=== PATIENT | female | born 1965 | race Caucasian/White ===

== ENCOUNTER 2023-05-23 14:57 | Inpatient (IN) ==
--- NOTE | 2023-05-23 15:15 | ED Triage Note ---
Date of Service May 23, 2023 Provider in Triage Author: Hugh Santiago History of Present Illness This patient was briefly evaluated while in triage. An abbreviated physical exam was performed. This patient is a 57-year-old Female who presents to the ED for evaluation of ED 05/20 for illness returns with continued weakness, fatigue, x over 1 week Physical Exam GENERAL: NAD CARDIOVASCULAR: RRR RESPIRATORY: CTA ABDOMEN: BS x 4. Nontender to palpation. Initial orders for labs and / or imaging were placed and patient was placed in the waiting area until a bed is available. Please see further documentation for the full ED course.
[2023-05-23] MEDS ORDERED: SODIUM CHLORIDE 0.9% 1,000 ML IV ONE (16:24)
--- NOTE | 2023-05-23 16:40 | Emergency Department Note ---
History of Present Illness General Chief complaint: Illness Stated complaint: SICK AND LETHARGIC Time Seen by Provider: 05/23/23 16:21 History of Present Illness Provider complaint: Weakness 57-year-old female presents emergency department for weakness. Patient states her symptoms began over the last 2 weeks. She states she feels very weak and tired. She states she has no energy to even walk around the house. She denies any falls or traumas. Patient recently finished chemotherapy and radiation therapy for lung cancer March 2023 and after finishing that started Ozempic. Patient reports that this is her second time to the emergency department this week for similar symptoms. She states last time they gave her multiple bags of fluids and she felt better and was released but states she feels worse again and had to come back. Home Medications Medication Instructions Recorded Confirmed Type alprazolam 0.5 mg tablet (Xanax) 0.5 mg PO DAILY PRN Anxiety 07/10/19 05/23/23 History aspirin 81 mg chewable tablet 81 mg PO DAILY 10/11/22 05/23/23 History cyclobenzaprine 10 mg tablet 10 mg PO HS PRN Muscle Spasm 10/11/22 05/23/23 History escitalopram oxalate 10 mg tablet 10 mg PO QAM 10/11/22 05/23/23 History (Lexapro) famotidine 20 mg tablet (Pepcid) 20 mg PO DAILY 10/11/22 05/23/23 History fluticasone 250 mcg-salmeterol 50 1 inh inhalation BID 10/11/22 05/23/23 History mcg/dose blistr powdr for inhalation (Advair Diskus) furosemide 20 mg tablet 20 mg PO DAILY PRN swelling 10/11/22 05/23/23 History magnesium oxide 400 mg (241.3 mg 400 mg PO DAILY 10/11/22 05/23/23 History magnesium) tablet ofloxacin 0.3 % ear drops 5 drp otic (ear) BID PRN as 10/11/22 05/23/23 History directed omeprazole 40 mg capsule,delayed 40 mg PO QAM 10/11/22 05/23/23 History release ondansetron HCl 8 mg tablet 8 mg PO Q8H PRN Nausea And Vomiting 10/11/22 05/23/23 History prochlorperazine maleate 10 mg 10 mg PO Q6H PRN Nausea And 10/11/22 05/23/23 History tablet (Compazine) Vomiting losartan 50 mg tablet 50 mg PO QAM 11/20/22 05/23/23 History rosuvastatin 20 mg tablet 20 mg PO HS 05/23/23 05/23/23 History Allergies Allergy/AdvReac Type Severity Reaction Status Date / Time bupropion Allergy Unknown HIVES Verified 05/23/23 19:42 Past Med/Surg History Medical History COPD (chronic obstructive pulmonary disease) Depression Metastatic primary lung cancer Diagnosis 09/20/22 Osteoarthritis Acid reflux Hearing deficit Anxiety Hyperlipidemia Surgical History S/P tonsillectomy History of surgery Hearing implants bilateral S/P bronchoscopy with biopsy 09/20/22 History of ear surgery MULTIPLE - RT History of tooth extraction History of hysterectomy Ovaries remain History of esophagogastroduodenoscopy (EGD) History of colonoscopy Family History Father Hearing loss Prostate cancer Mother Ovarian cancer Brother Lung cancer Sister No problems noted. Brother Myocardial infarction Brother No problems noted. Brother No problems noted. Son No problems noted. Other No family history of adverse response to anesthesia No family history of bleeding disorder Social History Smoking Status: Never smoker Tobacco Type: Cigarettes Age Started Using Tobacco: 16; Cigarettes Per Day: 1 PPD x 40yrs;; Second Hand Exposure: Yes; Do You Dip or Chew Tobacco: No; Hx Alcohol Use: Yes (Social) Alcohol Intake Frequency: 2-4 x/Month Hx Substance Use: No Preferred Language: Micronesian Communication Ability: Effective Visual Impairment: No Limitations Hearing Ability: Cochlear Implant Machine Gunner Required: No Beliefs That Will Affect Care: None marital status: Current Living Situation: Spouse current occupational status: employed 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 How many Children do You have: 1 Feels Safe at Home: Yes Diet: regular caffeine: Yes (4-5 cups/day) during the past year weight has: decreased > 10 lbs Physical Exam Vital Signs Vital Signs - 24 hr 05/23/23 15:14 05/23/23 15:15 05/23/23 17:35 Temperature 36.3 C L Temperature Source Temporal Artery Scan Pulse Rate 124 H 95 H Pulse Rate [Apical] Pulse Rate from SpO2 Sensor Respiratory Rate 20 Respiratory Effort / Characteristics Non-Labored Spontaneous Respiratory Depth Normal Respiratory Pattern Regular Blood Pressure 80/60 L Blood Pressure [Right Arm] Blood Pressure Mean 66 Blood Pressure Mean [Right Arm] Blood Pressure Position Sitting Pulse Oximetry 98 97 Oxygen Delivery Method Room Air Room Air Sepsis Recent Fever Within 48 Hours No Sepsis New/Unexplained Change in Mental Status No Sepsis Action Taken by Nursing Physician Notified 05/23/23 18:18 05/23/23 18:59 05/23/23 19:01 Temperature 37 C Temperature Source Oral Pulse Rate Pulse Rate [Apical] 92 H 93 H Pulse Rate from SpO2 Sensor Respiratory Rate 18 18 Respiratory Effort / Characteristics Non-Labored Respiratory Depth Normal Respiratory Pattern Blood Pressure Blood Pressure [Right Arm] 115/83 121/85 Blood Pressure Mean Blood Pressure Mean [Right Arm] 93 97 Blood Pressure Position Pulse Oximetry 97 97 97 Oxygen Delivery Method Room Air Room Air Sepsis Recent Fever Within 48 Hours Sepsis New/Unexplained Change in Mental Status Sepsis Action Taken by Nursing 05/23/23 20:00 05/23/23 20:00 05/23/23 20:00 Temperature Temperature Source Pulse Rate 98 H Pulse Rate [Apical] 95 H Pulse Rate from SpO2 Sensor Respiratory Rate 18 19 Respiratory Effort / Characteristics Non-Labored Respiratory Depth Normal Respiratory Pattern Blood Pressure 124/85 Blood Pressure [Right Arm] 124/85 Blood Pressure Mean 107 Blood Pressure Mean [Right Arm] 98 Blood Pressure Position Pulse Oximetry 99 98 Oxygen Delivery Method Room Air Sepsis Recent Fever Within 48 Hours Sepsis New/Unexplained Change in Mental Status Sepsis Action Taken by Nursing 05/23/23 20:30 05/23/23 20:30 05/23/23 21:00 Temperature Temperature Source Pulse Rate 88 Pulse Rate [Apical] Pulse Rate from SpO2 Sensor Respiratory Rate 20 Respiratory Effort / Characteristics Respiratory Depth Respiratory Pattern Blood Pressure 131/87 131/86 Blood Pressure [Right Arm] Blood Pressure Mean 102 94 Blood Pressure Mean [Right Arm] Blood Pressure Position Pulse Oximetry 96 Oxygen Delivery Method Room Air Sepsis Recent Fever Within 48 Hours Sepsis New/Unexplained Change in Mental Status Sepsis Action Taken by Nursing 05/23/23 21:00 05/23/23 21:31 Temperature Temperature Source Pulse Rate 89 92 H Pulse Rate [Apical] Pulse Rate from SpO2 Sensor 89 Respiratory Rate 20 Respiratory Effort / Characteristics Respiratory Depth Respiratory Pattern Blood Pressure Blood Pressure [Right Arm] Blood Pressure Mean Blood Pressure Mean [Right Arm] Blood Pressure Position Pulse Oximetry 95 Oxygen Delivery Method Room Air Sepsis Recent Fever Within 48 Hours Sepsis New/Unexplained Change in Mental Status Sepsis Action Taken by Nursing Physical Exam GENERAL: She is oriented to person, place, and time. She appears well-developed and well-nourished. She does not appear distressed. HENT: Exam performed. -Head: Normocephalic and atraumatic. -Right Ear: External ear normal. No mastoid erythema or tenderness -Left Ear: External ear normal. No mastoid erythema or tenderness. Left- sided cochlear implant present. -Mouth/Throat: The oropharynx is clear and moist. No trismus in the jaw. No dental abscesses or uvula swelling. No oropharyngeal exudate or tonsillar abscesses. EYES: Conjunctivae and EOM are normal. Pupils are equal, round, and reactive to light. Right eye exhibits no discharge. Left eye exhibits no discharge. No scleral icterus. NECK: Normal range of motion. Neck supple. No JVD present. No rigidity. No tracheal deviation and normal range of motion present. CV: Tachycardic rate, regular rhythm, normal heart sounds and intact distal pulses. There is no peripheral edema. Palpable radial pulses bue. PULM/CHEST: Effort normal and breath sounds normal. No respiratory distress. No stridor. She has no wheezes. She has no rales. -Chest Wall: She exhibits no tenderness. ABD: The abdomen is soft. She has no distension. No mass is present. There is no tenderness. There is no rebound, no guarding. MUSC/SKEL: Normal range of motion. There is no peripheral edema, tenderness or deformity. LYMPH: No cervical adenopathy. NEURO: She is alert and oriented to person, place, and time. She has normal strength. No cranial nerve deficit or sensory deficit. SKIN: Skin is warm and dry. She is not diaphoretic. PSYCH: She has a normal mood and affect. Behavior is normal. Judgment and thought content normal. Course Course 162: The patient was evaluated in room B2. A complete history and physical exam was performed Cardiac monitoring: An order was placed for continuous cardiac monitoring. The monitor shows a rate of 100 with sinus rhythm interpreted by me 1915: Vital signs stable status post fluids. Blood pressure and heart rate improved. Labs are within normal limits with the exception of a mild hypomagnesemia of 1.6 magnesium repleted in the emergency department. On reassessment the patient is in no acute distress. No focal neurological deficits. Nonsurgical abdomen. No meningeal signs. Patient states she does not feel well and does not feel comfortable going home. [facility]. Administered Medications Discontinued Medications Sodium Chloride (Nss) 1,000 mls @ 999 mls/hr IV .Q1H1M ONE Stop: 05/23/23 17:24 Last Infusion: 05/23/23 18:38 Dose: Infused Documented By: Admin: 05/23/23 17:34 Dose: 999 mls/hr Documented By: CARMEL Magnesium Sulfate/Dextrose (Magnesium Sulfate / D5w) 1 gm in 100 mls @ 100 mls/hr IV NOW STA Stop: 05/23/23 19:02 Last Infusion: 05/23/23 19:21 Dose: Infused Documented By: Admin: 05/23/23 18:21 Dose: 100 mls/hr Documented By: CARMEL Medical Decision Making Medical Records Attestation: I reviewed the patient's medical records. External medical records reviewed. Patient was in the emergency department 3 days ago for similar complaints. At that time the patient had a CT of the head CTA of the chest and CT of the abdomen pelvis which were unremarkable. Patient's labs were also unremarkable with white blood cell count of 4.93 her electrolytes were essentially within normal limits patient had an anion gap of 17 that was thought to be due to starvation ketoacidosis with her 4+ ketones in the patient not eating properly. Patient's respiratory bio fire was negative. Laboratory Data Attestation: I reviewed the patient's lab results. 05/23/23 17:04 05/23/23 17:04 Lab Results 05/23/23 05/23/23 05/23/23 Range/Units 17:04 17:06 19:10 WBC 4.70 L (4.8-10.8) K/ul RBC 4.16 L (4.20-5.40) M/uL Hgb 12.5 (12.0-16.0) g/dl Hct 36.0 L (37.0-47.0) % MCV 86.5 (80.0-100.0) fL MCH 30.0 (25.0-34.0) pg MCHC 34.7 (32.0-36.0) g/dL RDW Std Deviation 39.9 (36.4-46.3) fL RDW Coeff of Lizbeth 12.7 (11.5-14.5) % Plt Count 283 (130-400) K/uL MPV 9.8 (9.4-12.4) fL Immature Gran % (Auto) 0.4 % Neut % (Auto) 65.9 % Lymph % (Auto) 18.1 % [place] % (Auto) 14.5 % Eos % (Auto) 0.9 % Baso % (Auto) 0.2 % Neut # (Auto) 3.10 (1.40-6.50) K/uL Lymph # (Auto) 0.85 L (1.20-3.40) K/uL [place] # (Auto) 0.68 H (0.11-0.59) K/uL Eos # (Auto) 0.04 (0.00-0.50) K/uL Baso # (Auto) 0.01 (0.00-0.20) K/uL Immature Gran # (Auto) 0.02 (0.01-0.20) K/uL PT 11.6 (9.0-12.0) Seconds INR 1.1 (0.9-1.1) APTT 26 (21-31) Seconds PTT Ratio 0.9 VBG pH 7.41 (7.36-7.41) VBG pCO2 36 L (38-50) mmHg VBG pO2 44 mmHg VBG HCO3 23 mmol/L VBG O2 Saturation 72.0 % VBG Base Excess -1.4 mEq/L Sodium 136 (136-145) mmol/L Potassium 3.5 (3.5-5.1) mmol/L Chloride 100 (98-107) mmol/L Carbon Dioxide 23 (21-32) mmol/L Anion Gap 13 H (3-11) BUN 13 (6-23) mg/dl Creatinine 0.62 (0.6-1.2) mg/dl Est Cr Clr Drug Dosing 99.9 ml/min Est GFR ( Amer) 117.7 ml/min Est GFR (Non-Af Amer) 101.5 ml/min BUN/Creatinine Ratio 21.0 H (10-20) Glucose 88 (70-99(Fasting)) mg/dl Lactate 0.8 (0.4-2.0) mmol/L Calcium 9.6 (8.6-10.3) mg/dl Magnesium 1.6 L (1.7-2.4) mg/dl Total Bilirubin 0.5 (0.2-1.0) mg/dl Direct Bilirubin 0.1 (0-0.2) mg/dl AST 18 (13-39) U/L ALT 13 (7-52) U/L Alkaline Phosphatase 42 (34-104) U/L Ammonia 32.0 (18-72) umol/L Troponin I High Sens 5.4 (0-14) pg/ml Total Protein 7.0 (6.0-8.3) gm/dl Albumin 4.2 (3.4-5.0) gm/dl Procalcitonin < 0.05 (0-0.5) ng/ml Urine Color Yellow Urine Appearance Clear (Clear) Urine pH 6.5 (4.5-7.5) Ur Specific D Lo 1.015 (1.000-1.030) Urine Protein Trace H (Negative) Urine Glucose (UA) Negative (Negative) Urine Ketones 3+ H (Negative) Urine Blood Negative (Negative) Urine Nitrite Negative (Negative) Urine Bilirubin Negative (Negative) Urine Urobilinogen Negative (Negative) Ur Leukocyte Esterase Trace H (Negative) Urine WBC (Auto) 5-10 H (0-5) /hpf Urine RBC (Auto) 0-4 (0-4) /hpf U Hyaline Cast (Auto) 10-30 H (0-5) /lpf U Epithel Cells (Auto) >30 H (0-5) /lpf Urine Bacteria (Auto) Negative (Negative) Ur Renal Epithelial Cell 0-5 (0-5) /lpf Salicylates < 3.0 L (3.0-30) mg/dl Acetaminophen < 3 L (10-30) ug/ml SARS-CoV-2 (PCR) NEGATIVE (Negative) Imaging Data Attestation: I personally reviewed and interpreted this imaging study as follows: My Impression: Chest x-ray negative. Airway clear. No pneumothorax. No consolidation. No cardiomegaly or cephalization.. No free air under the diaphragm. No fractures of the skeletal structures. Radiologist's Impression: Chest X-Ray 05/23/23 16:22 XR chest 1V portable HISTORY: 57 years-old Female Sepsis acute sepsis COMPARISON: 05/20/2023 TECHNIQUE: AP view of the chest FINDINGS: Cardiomediastinal and hilar silhouettes are within normal limits. No pneumothorax, pleural effusion or airspace consolidation. The bones appear grossly intact. Right IJ Ugfvzy-s-Ebnh catheter is unchanged. IMPRESSION: No acute process. ACT 112: Negative or not required by law. The above report was generated using voice recognition software. It may contain grammatical, syntax or spelling errors. Electronically signed by: Elton Blair M.D. 05/23/2023 4:48 PM ECG Data Attestation: I personally reviewed and interpreted this ECG as follows: Rate (beats per minute): 109 Rhythm: + sinus tachycardia ECG Intervals/blocks: + Normal SC and + Normal QT-c ECG ST segments: + Normal ST segments Additional Comments: QRS 74 MDM Narrative 1621: The patient was evaluated in room B2. A complete history and physical exam was performed Cardiac monitoring: An order was placed for continuous cardiac monitoring. The monitor shows a rate of 100 with sinus rhythm interpreted by me 1915: Vital signs stable status post fluids. Blood pressure and heart rate improved. Labs are within normal limits with the exception of a mild hypomagnesemia of 1.6 magnesium repleted in the emergency department. On reassessment the patient is in no acute distress. No focal neurological deficits. Nonsurgical abdomen. No meningeal signs. Patient states she does not feel well and does not feel comfortable going home. Patient will be admitted to the [facility] hospitalist team. Impression & Plan Hypomagnesemia Discharge Plan Visit Data Chief Complaint: Illness Stated Complaint: SICK AND LETHARGIC ED Provider: Nam Banegas Discharge Problem: Hypomagnesemia Patient Disposition: Being Evaluated by Hospitalist Forms Stand Alone Forms: My [employer] Prescriptions Prescriptions: No Action cyclobenzaprine 10 mg tablet 10 mg PO HS PRN (Reason: Muscle Spasm) famotidine [Pepcid] 20 mg tablet 20 mg PO DAILY omeprazole 40 mg capsule,delayed release(DR/EC) 40 mg PO QAM fluticasone propion-salmeterol [Advair Diskus] 250-50 mcg/dose blister with device 1 inh inhalation BID escitalopram oxalate [Lexapro] 10 mg tablet 10 mg PO QAM furosemide 20 mg tablet 20 mg PO DAILY PRN (Reason: swelling) ofloxacin 0.3 % drops 5 drp otic (ear) BID PRN (Reason: as directed) magnesium oxide 400 mg (241.3 mg magnesium) tablet 400 mg PO DAILY ondansetron HCl 8 mg tablet 8 mg PO Q8H PRN (Reason: Nausea And Vomiting) prochlorperazine maleate [Compazine] 10 mg tablet 10 mg PO Q6H PRN (Reason: Nausea And Vomiting) aspirin 81 mg tablet,chewable 81 mg PO DAILY losartan 50 mg tablet 50 mg PO QAM alprazolam [Xanax] 0.5 mg Tablet 0.5 mg PO DAILY PRN (Reason: Anxiety) rosuvastatin 20 mg tablet 20 mg PO Referrals Referrals: Anh Krishnamurthy DO [Primary Care Provider] -
--- NOTE | 2023-05-23 16:50 | XRay Report ---
XR chest 1V portable HISTORY: 57 years-old Female Sepsis acute sepsis COMPARISON: 05/20/2023 TECHNIQUE: AP view of the chest FINDINGS: Cardiomediastinal and hilar silhouettes are within normal limits. No pneumothorax, pleural effusion o r airspace consolidation. The bones appear grossly intact. Right IJ Inleif-d-Uoct catheter is unchang ed. IMPRESSION: No acute process. ACT 112: Negative or not required by law. The above report was generated using voice recognition software. It may contain grammatical, syntax o r spelling errors. Electronically signed by: Elton Blair M.D. 05/23/2023 4:48 PM
[2023-05-23 17:21] LABS: Base Excess VBG -1.4 mEq/L; HCO3 VBG 23 mmol/L; PCO2 VBG 36 mmHg (38-50); PO2 VBG 44 mmHg; pH VBG 7.41 (7.36-7.41)
[2023-05-23 17:27] LABS: Basophils # (auto) 0.01 K/uL (0.00-0.20); Basophils % (auto) 0.2 %; Eosinophils # (auto) 0.04 K/uL (0.00-0.50); Eosinophils % (auto) 0.9 %; Hemoglobin 12.5 g/dl (12.0-16.0); Immature Granulocytes # (auto) 0.02 K/uL (0.01-0.20); Immature Granulocytes % (auto) 0.4 %; Lymphocytes # (auto) 0.85 K/uL (1.20-3.40); Lymphocytes % (auto) 18.1 %; Mean Corpuscular Hgb Conc 34.7 g/dL (32.0-36.0); Mean Corpuscular Volume 86.5 fL (80.0-100.0); Mean Platelet Volume 9.8 fL (9.4-12.4); Monocytes # (auto) 0.68 K/uL (0.11-0.59); Monocytes % (auto) 14.5 %; Neutrophils % (auto) 65.9 %; Platelet Count 283 K/uL (130-400); RDW Coefficient of Variation 12.7 % (11.5-14.5); RDW Standard Deviation 39.9 fL (36.4-46.3); Red Blood Count 4.16 M/uL (4.20-5.40)
[2023-05-23 17:44] LABS: Albumin Level 4.2 gm/dl (3.4-5.0); Bilirubin Direct 0.1 mg/dl (0-0.2); Bilirubin,Total 0.5 mg/dl (0.2-1.0); Calcium 9.6 mg/dl (8.6-10.3); Creatinine Clr Calc Pharmacy 99.9 ml/min; Est GFR (African American) 117.7 ml/min; Est GFR (Non-African American) 101.5 ml/min; Magnesium 1.6 mg/dl (1.7-2.4); Potassium 3.5 mmol/L (3.5-5.1)
[2023-05-23 17:50] LABS: Troponin I High Sensitivity 5.4 pg/ml (0-14)
[2023-05-23 17:58] LABS: INR 1.1 (0.9-1.1); Partial Thromboplastin Ratio 0.9; Partial Thromboplastin Time 26 Seconds (21-31); Prothrombin Time 11.6 Seconds (9.0-12.0)
[2023-05-23 18:02] LABS: Acetaminophen < 3 ug/ml (10-30); Salicylate < 3.0 mg/dl (3.0-30)
[2023-05-23] MEDS ORDERED: MAGNESIUM SULFATE / D5W 1 GM/100 ML BAG IV STA (18:03)
[2023-05-23 19:33] LABS: Appearance Urine Clear (Clear); Bacteria Urine Automated Negative (Negative); Bilirubin Urine Negative (Negative); Blood Urine Negative (Negative); Color Urine Yellow; Epithelial Cell Urine Auto >30 /lpf (0-5); Glucose Urine UA Negative (Negative); Ketones Urine 3+ (Negative); Leukocyte Esterase Urine Trace (Negative); Nitrite Urine Negative (Negative); Protein Urine Trace (Negative); RBC Urine Automated 0-4 /hpf (0-4); Specific Gravity Urine 1.015 (1.000-1.030); Urobilinogen Urine Negative (Negative); pH Urine 6.5 (4.5-7.5)
[2023-05-23 20:03] LABS: Renal Epithelial Cells Urine 0-5 /lpf (0-5)
--- NOTE | 2023-05-23 20:41 | History & Physical Report ---
Date of Service May 23, 2023 Assessment & Plan (1) Weakness: Plan: 57-year-old female with past medical history significant for hyperlipidemia, small cell lung cancer s/p chemoradiation, GERD, benign essential tremor, mixed conductive and sensorineural hearing loss of both ears, genetic leukocyte abnormalities , recurrent depression, generalized anxiety disorder, tobacco use disorder, Psychophysiological insomnia, history of COVID, comes because of weakness, nausea, poor appetite, dyspnea on exertion and ambulatory dysfunction. Patient states she is having this ongoing symptoms for more than a week and was in the ER 3 times last 1 week. On presentation today she was hypotensive improved with the fluids. Her Ozempic was held for the chemo but was restarted and she was taking low-dose. But because of ongoing symptoms she states she stopped Ozempic last Sunday. Having some headache. Has some back pain. No runny nose or sore throat. No cough. No fevers. No chest pain. Today has some mild abdominal discomfort. Did not move her bowels in last 1 week. On presentation her blood pressure was low but improved with the fluids. She is also sleeping a lot lately. But her states since she had prophylactic brain radiation she has been sleeping a lot. She finished her chemoradiation in March 2023. Weakness Poor appetite Nausea Sleeping a lot Ozempic has been stopped since last Sunday last chemoradiation March Labs shows possible starvation ketosis ABGs okay Mag 1.[address] on IV D5 normal saline 125 mill per hour Will monitor Follow repeat labs. Hypotension Possible from dehydration Improved with fluids Hypomagnesemia Will replace Follow labs Small cell lung cancer S/p chemoradiation S/p prophylactic brain radiation Follows with heme-onc Hypertension on losartan We will monitor. Hyperlipidemia On statin Depression Generalized anxiety disorder Lexapro Xanax as needed DVT prophylaxis Lovenox Disposition MedSur full code DVT prophylaxis History of Present Illness Chief Complaint: Weakness, poor appetite Primary Care Provider: Anh Krishnamurthy DO 57-year-old female with past medical history significant for hyperlipidemia, small cell lung cancer s/p chemoradiation, GERD, benign essential tremor, mixed conductive and sensorineural hearing loss of both ears, genetic leukocyte abnormalities , recurrent depression, generalized anxiety disorder, tobacco use disorder, Psychophysiological insomnia, history of COVID, comes because of weakness, nausea, poor appetite, dyspnea on exertion and ambulatory dysfunction. Patient states she is having this ongoing symptoms for more than a week and was in the ER 3 times in last 1 week. On presentation today she was hypotensive improved with the fluids. Her Ozempic was held for the chemo but was restarted and she was taking low-dose. But because of ongoing symptoms she states she stopped Ozempic last Sunday. Having some headache. Has some back pain. No runny nose or sore throat. No cough. No fevers. No chest pain. Today has some mild abdominal discomfort. Did not move her bowels in last 1 week. On presentation her blood pressure was low but improved with the fluids. She is also sleeping a lot lately. But her states since she had prophylactic brain radiation she has been sleeping a lot. She finished her chemoradiation in March 2023. Past medical history. As mentioned above. Past surgical history. Bronchoscopy. Colonoscopy. EGD. Multiple right ear surgeries. Excision of subcutaneous tumor neck/chest. Partial hysterectomy. Social history. . Quit smoking in 10/19/2022. Smoked 1 pack a day for 35 years. Alcohol on the weekends. No drug use. Family history. No known family history. Allergies Allergy/AdvReac Type Severity Reaction Status Date / Time bupropion Allergy Unknown HIVES Verified 05/23/23 19:42 Home Medications Medication Instructions Recorded Confirmed Type alprazolam 0.5 mg tablet (Xanax) 0.5 mg PO DAILY PRN Anxiety 07/10/19 05/23/23 History aspirin 81 mg chewable tablet 81 mg PO DAILY 10/11/22 05/23/23 History cyclobenzaprine 10 mg tablet 10 mg PO HS PRN Muscle Spasm 10/11/22 05/23/23 History escitalopram oxalate 10 mg tablet 10 mg PO QAM 10/11/22 05/23/23 History (Lexapro) famotidine 20 mg tablet (Pepcid) 20 mg PO DAILY 10/11/22 05/23/23 History fluticasone 250 mcg-salmeterol 50 1 inh inhalation BID 10/11/22 05/23/23 History mcg/dose blistr powdr for inhalation (Advair Diskus) furosemide 20 mg tablet 20 mg PO DAILY PRN swelling 10/11/22 05/23/23 History magnesium oxide 400 mg (241.3 mg 400 mg PO DAILY 10/11/22 05/23/23 History magnesium) tablet ofloxacin 0.3 % ear drops 5 drp otic (ear) BID PRN as 10/11/22 05/23/23 History directed omeprazole 40 mg capsule,delayed 40 mg PO QAM 10/11/22 05/23/23 History release ondansetron HCl 8 mg tablet 8 mg PO Q8H PRN Nausea And Vomiting 10/11/22 05/23/23 History prochlorperazine maleate 10 mg 10 mg PO Q6H PRN Nausea And 10/11/22 05/23/23 History tablet (Compazine) Vomiting losartan 50 mg tablet 50 mg PO QAM 11/20/22 05/23/23 History rosuvastatin 20 mg tablet 20 mg PO HS 05/23/23 05/23/23 History Past Med/Surg History Medical History COPD (chronic obstructive pulmonary disease) Depression Metastatic primary lung cancer Diagnosis 09/20/22 Osteoarthritis Acid reflux Hearing deficit Anxiety Hyperlipidemia Surgical History S/P tonsillectomy History of surgery Hearing implants bilateral S/P bronchoscopy with biopsy 09/20/22 History of ear surgery MULTIPLE - RT History of tooth extraction History of hysterectomy Ovaries remain History of esophagogastroduodenoscopy (EGD) History of colonoscopy Family History Father Hearing loss Prostate cancer Mother Ovarian cancer Brother Lung cancer Sister No problems noted. Brother Myocardial infarction Brother No problems noted. Brother No problems noted. Son No problems noted. Other No family history of adverse response to anesthesia No family history of bleeding disorder Social History Smoking Status: Former smoker Tobacco Type: Cigarettes Age Started Using Tobacco: 16; Cigarettes Per Day: 1 PPD x 40yrs;; Second Hand Exposure: Yes; Do You Dip or Chew Tobacco: No; Hx Alcohol Use: Yes Alcohol Intake Frequency: 2-4 x/Month Hx Substance Use: No Preferred Language: Japanese Communication Ability: Effective Visual Impairment: No Limitations Hearing Ability: Cochlear Implant Diplomatic Officer Required: No Beliefs That Will Affect Care: None marital status: Current Living Situation: Spouse current occupational status: employed 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 ENT- oropharynx clear Neck- supple, no JVD. Lungs- clear to auscultation no wheezing or crackles. Heart- regular rhythm; no murmur, no gallop. Abdomen- normal bowel sounds, soft, nontender, no distension. Extremities- no pretibial edema, no erythema seen. Neuro- alert, oriented x 3; PERRL, no facial palsy; no dysarthria; moves extremities. Skin- warm & dry Results & Data Results & Data Vital Signs (Past 12 Hours) Vital Signs Temp Pulse Pulse Resp BP BP Pulse Ox 05/23/23 20:00 95 H 18 124/85 99 05/23/23 19:01 37 C 93 H 18 121/85 97 05/23/23 18:59 97 05/23/23 18:18 92 H 18 115/83 97 05/23/23 17:35 95 H 05/23/23 15:15 97 05/23/23 15:14 36.3 C L 124 H 20 80/60 L 98 O2 Del Method 05/23/23 20:00 Room Air 05/23/23 19:01 Room Air 05/23/23 18:59 Room Air 05/23/23 18:18 05/23/23 17:35 05/23/23 15:15 Room Air 05/23/23 15:14 Room Air Diagnostic Findings Laboratory Results WBC 4.70 K/ul (4.8-10.8) L 05/23/23 17:04 RBC 4.16 M/uL (4.20-5.40) L 05/23/23 17:04 Hgb 12.5 g/dl (12.0-16.0) 05/23/23 17:04 Hct 36.0 % (37.0-47.0) L 05/23/23 17:04 MCV 86.5 fL (80.0-100.0) 05/23/23 17:04 MCH 30.0 pg (25.0-34.0) 05/23/23 17:04 MCHC 34.7 g/dL (32.0-36.0) 05/23/23 17:04 RDW Std Deviation 39.9 fL (36.4-46.3) 05/23/23 17:04 RDW Coeff of Lizbeth 12.7 % (11.5-14.5) 05/23/23 17:04 Plt Count 283 K/uL (130-400) 05/23/23 17:04 MPV 9.8 fL (9.4-12.4) 05/23/23 17:04 Immature Gran % (Auto) 0.4 % 05/23/23 17:04 Neut % (Auto) 65.9 % 05/23/23 17:04 Lymph % (Auto) 18.1 % 05/23/23 17:04 [place] % (Auto) 14.5 % 05/23/23 17:04 Eos % (Auto) 0.9 % 05/23/23 17:04 Baso % (Auto) 0.2 % 05/23/23 17:04 Neut # (Auto) 3.10 K/uL (1.40-6.50) 05/23/23 17:04 Lymph # (Auto) 0.85 K/uL (1.20-3.40) L 05/23/23 17:04 [place] # (Auto) 0.68 K/uL (0.11-0.59) H 05/23/23 17:04 Eos # (Auto) 0.04 K/uL (0.00-0.50) 05/23/23 17:04 Baso # (Auto) 0.01 K/uL (0.00-0.20) 05/23/23 17:04 Immature Gran # (Auto) 0.02 K/uL (0.01-0.20) 05/23/23 17:04 PT 11.6 Seconds (9.0-12.0) 05/23/23 17:04 INR 1.1 (0.9-1.1) 05/23/23 17:04 APTT 26 Seconds (21-31) 05/23/23 17:04 PTT Ratio 0.9 05/23/23 17:04 VBG pH 7.41 (7.36-7.41) 05/23/23 17:04 VBG pCO2 36 mmHg (38-50) L 05/23/23 17:04 VBG pO2 44 mmHg 05/23/23 17:04 VBG HCO3 23 mmol/L 05/23/23 17:04 VBG O2 Saturation 72.0 % 05/23/23 17:04 VBG Base Excess -1.4 mEq/L 05/23/23 17:04 Sodium 136 mmol/L (136-145) 05/23/23 17:04 Potassium 3.5 mmol/L (3.5-5.1) 05/23/23 17:04 Chloride 100 mmol/L (98-107) 05/23/23 17:04 Carbon Dioxide 23 mmol/L (21-32) 05/23/23 17:04 Anion Gap 13 (3-11) H 05/23/23 17:04 BUN 13 mg/dl (6-23) 05/23/23 17:04 Creatinine 0.62 mg/dl (0.6-1.2) 05/23/23 17:04 Est Cr Clr Drug Dosing 99.9 ml/min 05/23/23 17:04 Est GFR ( Amer) 117.7 ml/min 05/23/23 17:04 Est GFR (Non-Af Amer) 101.5 ml/min 05/23/23 17:04 BUN/Creatinine Ratio 21.0 (10-20) H 05/23/23 17:04 Glucose 88 mg/dl (70-99(Fasting)) 05/23/23 17:04 Lactate 0.8 mmol/L (0.4-2.0) 05/23/23 17:04 Calcium 9.6 mg/dl (8.6-10.3) 05/23/23 17:04 Magnesium 1.6 mg/dl (1.7-2.4) L 05/23/23 17:04 Total Bilirubin 0.5 mg/dl (0.2-1.0) 05/23/23 17:04 Direct Bilirubin 0.1 mg/dl (0-0.2) 05/23/23 17:04 AST 18 U/L (13-39) 05/23/23 17:04 ALT 13 U/L (7-52) 05/23/23 17:04 Alkaline Phosphatase 42 U/L (34-104) 05/23/23 17:04 Ammonia 32.0 umol/L (18-72) 05/23/23 17:04 Troponin I High Sens 5.4 pg/ml (0-14) 05/23/23 17:04 Total Protein 7.0 gm/dl (6.0-8.3) 05/23/23 17:04 Albumin 4.2 gm/dl (3.4-5.0) 05/23/23 17:04 Procalcitonin < 0.05 ng/ml (0-0.5) 05/23/23 17:06 Urine Color Yellow 05/23/23 19:10 Urine Appearance Clear (Clear) 05/23/23 19:10 Urine pH 6.5 (4.5-7.5) 05/23/23 19:10 Ur Specific [place] 1.015 (1.000-1.030) 05/23/23 19:10 Urine Protein Trace (Negative) H 05/23/23 19:10 Urine Glucose (UA) Negative (Negative) 05/23/23 19:10 Urine Ketones 3+ (Negative) H 05/23/23 19:10 Urine Blood Negative (Negative) 05/23/23 19:10 Urine Nitrite Negative (Negative) 05/23/23 19:10 Urine Bilirubin Negative (Negative) 05/23/23 19:10 Urine Urobilinogen Negative (Negative) 05/23/23 19:10 Ur Leukocyte Esterase Trace (Negative) H 05/23/23 19:10 Urine WBC (Auto) 5-10 /hpf (0-5) H 05/23/23 19:10 Urine RBC (Auto) 0-4 /hpf (0-4) 05/23/23 19:10 U Hyaline Cast (Auto) 10-30 /lpf (0-5) H 05/23/23 19:10 U Epithel Cells (Auto) >30 /lpf (0-5) H 05/23/23 19:10 Urine Bacteria (Auto) Negative (Negative) 05/23/23 19:10 Ur Renal Epithelial Cell 0-5 /lpf (0-5) 05/23/23 19:10 Salicylates < 3.0 mg/dl (3.0-30) L 05/23/23 17:04 Acetaminophen < 3 ug/ml (10-30) L 05/23/23 17:04 SARS-CoV-2 (PCR) NEGATIVE (Negative) 05/23/23 17:04 Impressions Chest X-Ray 05/23/23 16:22 XR chest 1V portable HISTORY: 57 years-old Female Sepsis acute sepsis COMPARISON: 05/20/2023 TECHNIQUE: AP view of the chest FINDINGS: Cardiomediastinal and hilar silhouettes are within normal limits. No pneumothorax, pleural effusion or airspace consolidation. The bones appear grossly intact. Right IJ [id number] catheter is unchanged. IMPRESSION: No acute process. ACT 112: Negative or not required by law. The above report was generated using voice recognition software. It may contain grammatical, syntax or spelling errors. Electronically signed by: Elton Blair M.D. 05/23/2023 4:48 PM ECG Additional Comments: ECG. Sinus tachycardia with occasional PVCs rate of 109. Possible left atrial enlargement. Left anterior fascicular block. No acute ST changes seen. Code Status & VTE Plan VTE Prophylaxis Plan VTE Prophylaxis will be ordered: Yes
[2023-05-23] MEDS ORDERED: ONDANSETRON INJ 2 MG/ML 2 ML VIAL IV PRN (23:34)
[2023-05-23] MEDS ORDERED: ACETAMINOPHEN 325 MG TAB PO PRN (23:34)
[2023-05-23] MEDS ORDERED: PROCHLORPERAZINE MALEATE 10 MG TAB PO PRN (23:34)
[2023-05-23] MEDS ORDERED: INSULIN ASPART PER UNIT CHARGE SC SCH (23:34)
[2023-05-23] MEDS ORDERED: ALPRAZolam 0.5 MG TABLET PO PRN (23:34)
[2023-05-23] MEDS ORDERED: GLUCOSE 10 TAB/TUBE PO PRN (23:34)
[2023-05-23] MEDS ORDERED: CYCLOBENZAPRINE HCL 10 MG TAB PO PRN (23:34)
[2023-05-23] MEDS ORDERED: GLUCOSE 40% GEL 15 GM TUBE PO PRN (23:34)
[2023-05-23] MEDS ORDERED: DEXTROSE 50% 50 ML SYRINGE IV PRN (23:34)
[2023-05-23] MEDS ORDERED: GLUCAGON FOR INJ 1 MG VIAL SQ PRN (23:34)
[2023-05-23] MEDS ORDERED: CARBOHYDRATES FOR HYPOGLYCEMIA PO PRN (23:34)
[2023-05-23] MEDS ORDERED: FUROSEMIDE 20 MG TAB PO PRN (23:34)
[2023-05-24] MEDS ORDERED: OFLOXACIN 0.3% 75 DROPS/5 ML BTL OT PRN (00:37)
[2023-05-24] MEDS: D5W AND NSS 1,000 ML IV SCH ×3 (00:42→16:17)
[2023-05-24] MEDS: ROSUVASTATIN CALCIUM 20 MG TAB PO SCH ×2 (00:44→20:14)
--- OUTSIDE RECORDS SUMMARY | 2023-05-24 05:29 | External Medical Summary | Summary of Care ---
Author Name Unknown Organization [facility] Address [address] [place] [address] Phone [phone] Care Team Providers Care Cell Biology Scientist Name Role Phone Robina Matias DO Primary Care Provider [phone] Encounter Details Date Type Department Care Team (Late st Contact Info) Description 05/23/2023 [facility] [address] [place] [address] Anh Krishnamurthy DO [address] [facility] [place] [address] Allergies Active Allergy Reactions Criticality Noted Date Comments Bupropion Hives 10/07/2019 Other Reaction(s): HIVES documented as of this encounter (statuses as of 05/23/2023) Medications Medication Sig Dispensed Refills Start Date End Date Status Omeprazole 40 MG Oral Capsule Delayed Release (PriLOSEC) TAKE ONE CAPSULE BY MOUTH IN THE MORNING ONE HOUR BEFORE THE FIRST MEAL OF THE DAY 90 Capsule 2 08/31/2022 Active Ondansetron HCl 8 MG Oral Tablet (Zofran)Indication s:Small cell lung cancer (HCC) Take 1 Tablet by mouth every 8 hours as needed for Nausea. 30 Tablet 2 10/10/2022 Active Lidocaine-Prilocai ne 2.5-2.5 % External Cream (Emla)Indications: Small cell lung cancer (HCC) APPLY TO SKIN OVER MEDIPORT & COVER 1HR PRIOR TO ACCESSING. 30 g 1 10/10/2022 Active traZODone HCl 50 MG Oral Tablet (Desyrel) Take 1 Tablet by mouth at bedtime. 30 Tablet 5 10/25/2022 Active Aspirin 81 MG Oral Tablet Delayed Release Take 1 Tablet by mouth in the morning. 0 Active Magnesium 250 MG Oral Tablet Take 2 Tablets by mouth at bedtime. 0 Active Advair Diskus 250-50 MCG/ACT Inhalation Aerosol Powder Breath Activated (Fluticasone-Salme terol)Indications: Obesity, Class I, BMI 30.0-34.9 (see actual BMI) INHALE ONE PUFF BY MOUTH EVERY MORNING AND ONE PUFF BEFORE BEDTIME 180 Each 3 02/06/2023 Active Famotidine 20 MG Oral Tablet (Pepcid) TAKE ONE TABLET BY MOUTH AT BEDTIME 90 Tablet 3 02/08/2023 Active predniSONE 10 MG Oral Tablet (Deltasone)Indicat ions:Bronchitis, complicated Take 5 tabs for 2 days, 4 tabs for 2 days, 3 tabs for 2 days, 2 tabs for 2 days 1 tab for 2 days 30 Tablet 0 02/13/2023 Active Additional Information Patient not taking.Reported on 03/27/2023 Cyclobenzaprine HCl 10 MG Oral Tablet (Flexeril)Indicati ons:Lumbar back pain,Recurrent major depressive disorder, in partial remission (HCC),AVILA (generalized anxiety disorder) Take 1 Tablet by mouth at bedtime as needed for Muscle spasms. 20 Tablet 0 02/21/2023 Active Escitalopram Oxalate 10 MG Oral Tablet (Lexapro) TAKE ONE TABLET BY MOUTH EVERY DAY IN THE MORNING 90 Tablet 1 03/08/2023 Active Rosuvastatin Calcium 20 MG Oral Tablet (Crestor)Indicatio ns:Dyslipidemia, goal LDL below 130,AVILA (generalized anxiety disorder) TAKE ONE TABLET BY MOUTH AT BEDTIME 90 Tablet 1 03/08/2023 Active Nicotine Polacrilex 2 MG Mouth/Throat Lozenge (Nicotine Mini)Indications:S moker within last 12 months Apply 2 mg to the mouth or throat every 6 hours. 168 Lozenge 1 03/19/2023 Active oxyCODONE-Acetamin ophen 5-325 MG Oral Tablet (Percocet) Take 1 Tablet by mouth every 6 hours as needed for Pain, Moderate. 10 Tablet 0 03/30/2023 Active Nirmatrelvir&Riton avir 300/100 20 x 150 MG & 10 x 100MG Oral Tablet Therapy Pack (Paxlovid)Indicati ons:COVID-19 virus infection Take 2 pink tablets of Nirmatrelvir and 1 white tablet of Ritonavir two times a day by mouth. 30 Tablet 0 04/03/2023 Active Ozempic (0.25 or 0.5 MG/DOSE) 2 MG/1.5ML Solution Pen-injector (Semaglutide(0.25 or 0.5MG/DOS))Indicat ions:BMI 30.0-30.9,adult Inject 0.25 mg under the skin once a week. 1.5 mL 1 04/13/2023 Active Losartan Potassium 50 MG Oral Tablet (Cozaar)Indication s:Small cell lung cancer (HCC) Take 0.5 Tablets by mouth in the morning. 30 Tablet 5 04/20/2023 Active ALPRAZolam 0.5 MG Oral Tablet (xaNAX)Indications :AVILA (generalized anxiety disorder) 1/2 to 1 tablet by mouth daily in the AM as needed for tremors and anxiety 30 Tablet 0 04/26/2023 Active Hospital, Clinic, or Other Facility Administered Medication Ordered Dose Route Frequency Start Date End Date Status Albuterol Sulfate (Proventil) (2.5 MG/3ML) 0.083% inhalation solution 2.5 mgIndications:Small cell lung cancer in adult (HCC) 2.5 mg NEBULIZER PRN 12/18/2022 12/18/2023 Active Albuterol Sulfate (Proventil) (5 MG/ML) 0.5% *conc* inhalation solution 2.5 mgIndications:Small cell lung cancer in adult (HCC) 2.5 mg NEBULIZER PRN 12/18/2022 12/18/2023 Active documented as of this encounter (statuses as of 05/23/2023) Active Problems Problem Noted Date Diagnosed Date Encounter for central line care 02/02/2023 Right ovarian cyst 12/06/2022 Overview: IMPRESSION: Right ovarian thinly septated cyst, which appears grossly unchanged since the PET-CT scan of 09/28/2022. 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 Status post cochlear implant bilateral. Tobacco use disorder 10/07/2019 S/P partial hysterectomy 10/07/2019 Overview: Ovaries remain. Follows with [facility]. Psychophysiological insomnia 10/07/2019 Benign essential tremor 04/10/2019 Dyslipidemia, goal LDL below 130 08/07/2016 documented as of this encounter (statuses as of 05/23/2023) Immunizations Name Administration Dates Next Due COVID-19 mRNA, LNP-s, No Pre serve, 2-Dose Series ([employer]) 03/31/2021,08/07/2020,07/17/2020 Pneumococcal Conjugate Vacc, 13 Valent (Prevnar) 08/04/2019 Pneumococcal Polysaccharide PPV23 (Pneumovax) 03/25/2018 Seasonal Influenza Virus Vac cine, Unspecified Formulation 03/14/2019,03/25/2018,02/27/2017,03/21,04/21/2015 Seasonal Influenza, PF, 6 M & above, IM , (FluLaval or Fluzone) 05/24/2022,06/09/2021,02/19/2020,02/27,03/21/2016,04/21/2015 Seasonal Influenza, Recombin ant, RIV4, PF, (Flublock) 03/14/2019,03/25/2018 TDAP (age 10 and older)(Boostrix) 07/04/2010 documented as of this encounter Social History Tobacco Use Types Packs/Day Years Used Date Smoking Tobacco: Former Cigarettes 1 35 Q uit: 10/19/2022 Smokeless Tobacco: Never Alcohol Use Standard Drinks/Week Comments Yes 0 (1 standard drink = 0.6 oz pur e alcohol) weekends PHQ-2 Answer Date Recorded PHQ Adult Total Score 2 02/13/2023 Hunger Vital Sign Answer Date Recorded Within the past 12 months, y ou worried that your food would run out before you got the money to buy more. Never true 02/14/20 23 Within the past 12 months, t he food you bought just didn't last and you didn't have money to get more. Never true 02/13/2023 Sex and Gender Information Value Date Recorded Sex Assigned at Female 02/13/2023 10:11 AM EDT Gender Identity Female 02/13/2023 10:11 AM EDT Sexual Orientation Straight 02/13/2023 10 :11 AM EDT Job Start Date Occupation Industry Not on file Not on file Not on file documented as of this encounter Plan of Treatment Upcoming Encounters Date Type Department Care Team (Late st Contact Info) Description 05/23/2023 4:15 PM EST Imaging Radiology [facility] 1st Floor, [place] [address] [facility] [place] [address] 06/19/2023 11:30 AM EST Immunization/Injectio n Hematology/Oncology Treatment, [place] [address] [place] [address] Lalitha, Chair 2 Hem Onc Scenery [address] [place] [address] 06/27/2023 11:00 AM EST Office Visit Cardiology, [facility] [address] [place] [address] Radha Stephens CRNP [address] [facility] [place] [place] [address] 08/21/2023 8:40 AM EDT Office Visit Family Practice [place], [place] [address] [place] [address] Anh Krishnamurthy DO [address] [place] [address] 09/18/2023 10:00 AM EDT Laboratory Laboratory [place] Wyatt [address] [place] [phone] Namrata Herron [address] [place] [address] [place] [address] 09/20/2023 11:00 AM EDT Imaging Radiology [facility] 1st [facility], [place] [address] [place] [address] 09/27/2023 10:45 AM EDT Office Visit Hematology/Oncology [facility] [address] [facility] [place] [address] Jv Singh MD [address] [facility] [place] [address] Scheduled Procedures Name Priority Associated Diagnoses Date/Ti me COLONOSCOPY FLEXIBLE PROXIMA L DIAGNOSTIC Recall History of colonic polyps Health Maintenance Due Date Last Done Comments Hepatitis B (1 of 3 - 3-dose series) 1965 Zoster Vaccines (1 of 2) 11/25/1986 DTaP,Tdap,and Td Vaccines (2 - Td or Tdap) 07/04/2020 07/04/2010 COVID-19 Vaccine (4 - 2022- season) 2023 03/31/2021, 08/07/2020, 07/17/2020 Influenza Vaccine (FLU shot) (#1) 2023 05/24/2022, 06/09/2021, 02/19/2020, Additional history exists Pneumococcal Vaccine: Pediatrics (0 to 5 Years) and At-Risk Patients (6 to 64 Years) (3 - PPSV23 or PCV20) 03/25/2023 08/04/2019, 03/25/2018 Mammogram 06/09/2023 06/09/2022, 09/18, 07/15/2019, Additional history exists Depression Screening 02/14/2024 02/13/2023 Diabetes Screening 05/08/2026 05/18/2023, 1 07/09/2022, 02/19/2023, Additional history exists COLONOSCOPY-EVERY 5 YRS AGES 18-100 01/27/2028 01/26/2023, 01/26/2023, 01/30/2018 Lipid Panel 02/20/2028 02/19/2023, 11/19, 11/27/2022, Additional history exists Colonoscopy Discontinued 01/26/2023, 12/2022, 01/30/2018 Colorectal Cancer Screening Discontinued Cologuard Discontinued Fecal Occult Blood Test Discontinued GARDASIL-HPV IMMUNIZATION SERIES Aged Out No longer eligible based on patient's age to complete this topic MENINGOCOCCAL (MENACTRA/MENVEO) Aged Out No longer eligible based on patient's age to complete this topic Sigmoidoscopy Discontinued documented as of this encounter Medical Devices Implanted Type Area Histopathology Technician Device Identifier Shelf Expiration Date Model / Serial / Lot Power Port 8fr Sngl Lumen Plas - [id number] Implanted:Qty: 1 on 11/07/2022 by Juan Antonio Jose, at OR [facility] BARD : PERIPHERAL VASCULAR [id number] 03/20/2024 [id number] / / [id number] documented as of this encounter Procedures Procedure Name Priority Date/Time Associated Diagnosis Comments CHEMISTRY-OUTSIDE Routine 05/18/2023 documented in this encounter Results * CHEMISTRY-OUTSIDE (05/18/2023) Not all results display below - see scan for full detail OUTSIDE LAB (SEE SCANNED REPORT) Comment:SCAN INCL: ED LABS: LACTIC ACID,PROBNP,CMP,LIPASE,CBCD CREATININE-OUTSID E LAB 0.70 0.40 - 1.50 MG/DL OUTSIDE LAB (SEE SCANNED REPORT) EGFR-OUTSIDE LAB >90 OUT SIDE LAB (SEE SCANNED REPORT) POTASSIUM-OUTSIDE LAB 4.0 3.6 - 5.0 OUTSIDE LAB (SEE SCANNED REPORT) GLUCOSE-OUTSIDE LAB 82 65 - 110 MG/DL OUTSIDE LAB (SEE SCANNED REPORT) HOURS FASTING OUTSID E LAB (SEE SCANNED REPORT) TRIGLYCERIDES-OUT SIDE LAB OUTSIDE LAB (SEE SCANNED REPORT) CHOLESTEROL-OUTSI DE LAB OUTSIDE LAB (SEE SCANNED REPORT) HDL-OUTSIDE LAB OUTS [facility] (SEE SCANNED REPORT) CHOL/HDL RATIO-OUTSIDE LAB OUTSIDE LA B (SEE SCANNED REPORT) LDL (CALCULATED)-OUTS [facility] OUTSIDE LAB (SEE SCANNED REPORT) LDL (DIRECT MEASURE)-OUTSIDE LAB OUTSIDE LAB (SEE SCANNED REPORT) HEMOGLOBIN, [id number] LAB OUTSIDE LAB (SEE SCANNED REPORT) PHOSPHORUS-OUTSID E LAB OUTSIDE LAB (SEE SCANNED REPORT) PTH-OUTSIDE LAB OUTS [facility] (SEE SCANNED REPORT) MICROALBUMIN RATIO-OUTSIDE LAB OUTSIDE LA B (SEE SCANNED REPORT) PROTEIN, UA-OUTSIDE LAB OUTSIDE LAB (SEE SCANNED REPORT) HEMOGLOBIN-OUTSID E LAB 13.2 12.0 - 16.0 GM/DL OUTSIDE LAB (SEE SCANNED REPORT) 05/18/2023 History Per Patient LABORATORY OUTSIDE LAB (SEE SCANNED REPORT) documented in this encounter Advance Directives Latest Code Status on File Code Status Date Activated Date Inactivated Comments Full Code 03/30/2023 8:08 AM 03/30/2023 2:17 PM Thi s order reflects the patients wishes and were consensually agreed upon. Question Answer Comments Discussion of Advance Directives occurred with: Patient Code Status History Code Status Date Activated Date Inactivated Comments Full Code 03/30/2023 8:02 AM 03/30/2023 8:08 AM Thi s order reflects the patients wishes and were consensually agreed upon. Question Answer Comments Discussion of Advance Directives occurred with: Patient Care Teams Cell Biology Scientist Relationship Specialty Start Date End Date Robina Matias DO PCP - General Family Medicine 10/07/19 documented as of this encounter
--- OUTSIDE RECORDS SUMMARY | 2023-05-24 05:29 | External Medical Summary | Summary of Care ---
Author Name Unknown Organization [facility] Address [address] [place] [address] Phone [phone] Care Team Providers Care Examiner Rating Clerk Name Role Phone Robina Matias DO Primary Care Provider [phone] Encounter Details Date Type Department Care Team (Late st Contact Info) Description 05/23/2023 [facility] [address] [place] [address] Anh Krishnamurthy DO [address] [facility] [place] [address] Allergies Active Allergy Reactions Criticality Noted Date [...] mRNA, LNP-s, No Pre serve, 2-Dose Series ([employer] 03/31/2021,08/07/2020,07/17/2020 Pneumococcal Conjugate Vacc, 13 Valent (Prevnar) [...] Description 05/23/2023 4:15 PM EST Imaging Radiology [facility] 1st Floor, [place] [address] [place] [address] 06/19/2023 11:30 AM EST Immunization/Injectio n Hematology/Oncology Treatment, [place] [address] [place] [address] Lalitha, Chair 2 Hem Onc Scenery [address] [place] [address] 06/27/2023 11:00 AM EST Office Visit Cardiology, [facility] [address] [place] [address] Radha Stephens CRNP 132 [place] [address] 08/21/2023 8:40 AM EDT Office Visit Family Practice [place], [place] [address] [place] [address] Anh Krishnamurthy DO [address] [place] [address] 09/18/2023 10:00 AM EDT Laboratory Laboratory [address] [place] Wy[place] [address] [place] [address] Namrata Herron [address] [address] [place] [address] 09/20/2023 11:00 AM EDT Imaging Radiology [facility] 1st [facility], [place] [address] [place] [address] 09/27/2023 10:45 AM EDT Office Visit Hematology/Oncology [facility] 200 [facility] [place] [address] Jv Singh MD 200 [facility] [place] [address] Scheduled Procedures Name Priority Associated Diagnoses Date/Ti [...] Depression Screening 02/14/2024 02/13/2023 Diabetes Screening 05/08/2026 05/08/2023, 1 , 02/19/2023, Additional history exists COLONOSCOPY-EVERY 5 YRS [...] this encounter Medical Devices Implanted Type Area Biophysics Professor Device Identifier Shelf Expiration Date Model / Serial / Lot Power Port 8fr Sngl Lumen Plas - [id number] Implanted:Qty: 1 on 11/07/2022 by Juan Antonio Jose DO at OR [facility] BARD : PERIPHERAL VASCULAR [id number] 03/20/2024 [id number] / / [id number] documented as of this encounter Procedures Procedure Name Priority Date/Time Associated Diagnosis Comments OUTSIDE LAB-CORONAVIRUS (COVID-19) Routine 05/18/2023 documented in this encounter Results * OUTSIDE LAB-CORONAVIRUS (COVID-19) (05/18/2023) [id number] E LAB NOT DETECTED OUTSIDE LAB (SEE SCANNED REPORT) 05/18/2023 History [...] Advance Directives occurred with: Patient Care Teams Examiner Rating Clerk Relationship Specialty Start Date End Date Robina Matias DO PCP - General Family Medicine 10/07/19 documented as of this encounter
--- OUTSIDE RECORDS SUMMARY | 2023-05-24 05:29 | External Medical Summary | Summary of Care ---
Author Name Unknown Organization [facility] Address [address] [place] [address] Phone [phone] Care Team Providers Care Chainstitch Seat Joiner Name Role Phone Robina Matias DO Primary Care Provider [phone] Reason for Visit * Reason Onset Date Comments Appointment 02/19/2023 Encounter Details Date Type Department Care Team (Late st Contact Info) Description 02/19/[facility] [address] [facility] [place] [id number] Robina Matias DO [address] [place] [address] Appointment Allergies Active Allergy Reactions Criticality Noted Date Comments Bupropion Hives 10/07/2019 Other Reaction(s): HIVES documented as of this encounter (statuses as of 05/21/2023) Medications Medication Sig Dispensed Refills Start Date End Date Status Omeprazole 40 MG Oral Capsule Delayed Release (PriLOSEC) TAKE ONE CAPSULE BY MOUTH IN THE MORNING ONE HOUR BEFORE THE FIRST MEAL OF THE DAY 90 Capsule 2 3 Active Ondansetron HCl 8 MG Oral Tablet (Zofran)Indicati ons:Small cell lung cancer (HCC) Take 1 Tablet by mouth every 8 hours as needed for Nausea. 30 Tablet 2 3 Active Lidocaine-Priloc pooja 2.5-2.5 % External Cream (Emla)Indication s:Small cell lung cancer (HCC) APPLY TO SKIN OVER MEDIPORT & COVER 1HR PRIOR TO ACCESSING. 30 g 1 3 Active traZODone HCl 50 MG Oral Tablet (Desyrel) Take 1 Tablet by mouth at bedtime. 30 Tablet 5 3 Active Aspirin 81 MG Oral Tablet Delayed Release Take 1 Tablet by mouth in the morning. 0 Active Magnesium 250 MG Oral Tablet Take 2 Tablets by mouth at bedtime. 0 Active Advair Diskus 250-50 MCG/ACT Inhalation Aerosol Powder Breath Activated (Fluticasone-Oscar meterol)Indicati ons:Obesity, Class I, BMI 30.0-34.9 (see actual BMI) INHALE ONE PUFF BY MOUTH EVERY MORNING AND ONE PUFF BEFORE BEDTIME 180 Each 3 3 Active Famotidine 20 MG Oral Tablet (Pepcid) TAKE ONE TABLET BY MOUTH AT BEDTIME 90 Tablet 3 3 Active predniSONE 10 MG Oral Tablet (Deltasone)Indic ations:Bronchiti s, complicated Take 5 tabs for 2 days, 4 tabs for 2 days, 3 tabs for 2 days, 2 tabs for 2 days 1 tab for 2 days 30 Tablet 0 3 Active Additional Information Patient not taking.Reported on 03/27/2023 Rosuvastatin Calcium 20 MG Oral Tablet (Crestor)Indicat ions:Dyslipidemi a, goal LDL below 130,AVILA (generalized anxiety disorder) Take 1 Tablet by mouth at bedtime. 90 Tablet 1 3 03/08/20 23 Discontinued Escitalopram Oxalate 10 MG Oral Tablet (Lexapro) Take 1 Tablet by mouth in the morning. 30 Tablet 5 3 03/08/20 23 Discontinued Cyclobenzaprine HCl 10 MG Oral Tablet (Flexeril)Indica tions:Lumbar back pain,Recurrent major depressive disorder, in partial remission (HCC),AVILA (generalized anxiety disorder) Take 1 Tablet by mouth at bedtime as needed for Muscle spasms. 20 Tablet 0 3 02/22/20 23 Discontinued(Ref ill) ALPRAZolam 0.5 MG Oral Tablet (xaNAX)Indicatio ns:AVILA (generalized anxiety disorder) 1/2 to 1 tablet by mouth daily in the AM as needed for tremors and anxiety 30 Tablet 0 3 02/22/20 23 Discontinued(Ref ill) Nicotine Polacrilex 2 MG Mouth/Throat Lozenge (Nicotine Mini)Indications :Smoker within last 12 months Apply 2 mg to the mouth or throat every evening. 168 Lozenge 3 3 03/19/20 23 Discontinued(Ref ill) Amoxicillin-Pot Clavulanate 875-125 MG Oral Tablet (Augmentin) Take 1 Tablet by mouth in the morning and 1 Tablet before bedtime. Do all this for 10 days. 20 Tablet 0 3 03/30/20 23 Discontinued Losartan Potassium 50 MG Oral Tablet (Cozaar) Take 0.5 Tablets by mouth in the morning. 30 Tablet 5 3 04/20/20 23 Discontinued(Ref ill) Hospital, Clinic, or Other Facility Administered Medication [...] as of this encounter (statuses as of 05/21/2023) Active Problems Problem Noted Date Diagnosed Date [...] as of this encounter (statuses as of 05/21/2023) Immunizations Name Administration Dates Next Due COVID-19 mRNA, LNP-s, No Pre serve, 2-Dose Series ([employer]) 03/31/2021,08/07/2020,07/17/2020 Pneumococcal Conjugate Vacc, 13 Valent (Prevnar) [...] on file documented as of this encounter Miscellaneous Notes * Telephone Encounter - Kirsten Mello OSA - 02/19/2023 11:[address] Matias: Needs ENT appointment moved up . Starting Radiation on 03/12/23. documented in this encounter Plan of Treatment Upcoming Encounters Date Type Department Care Team (Late st Contact Info) Description 05/23/2023 4:15 PM EST Imaging Radiology [facility] 1st Floor, [place] [address] [facility] [place] [address] 06/19/2023 11:30 AM EST Immunization/Injectio n Hematology/Oncology Treatment, [place] [address] [place] [address] Lalitha, Chair 2 Hem Onc Scenery [address] [facility] [place] [address] 06/27/2023 11:00 AM EST Office Visit Cardiology, [facility] [address] Radha Stephens CRNP [facility] [address] 08/21/2023 8:40 AM EDT Office Visit Family Practice [address], [place] [address] [place] [address] Anh Krishnamurthy DO [address] [place] [address] 09/18/2023 10:00 AM EDT Laboratory Laboratory [address] [place], [place] [address] [place] [phone] [place] [address] 09/20/2023 11:00 AM EDT Imaging Radiology [facility] 1st [facility] [address] [place] [address] 09/27/2023 10:45 AM EDT Office Visit [facility]ematology/[facility] 200 [facility] [place] [address] Jv Singh MD 200 [facility] [place] [address] Scheduled Procedures Name Priority Associated Diagnoses Date/Ti [...] this encounter Medical Devices Implanted Type Area Dental Mold Maker Device Identifier Shelf Expiration Date Model / Serial / Lot Power Port 8fr Sngl Lumen Plas - [id number] Implanted:Qty: 1 on 11/07/2022 by Juan Antonio Jose DO at OR [facility] BARD : PERIPHERAL VASCULAR [id number] 03/20/2024 [id number] / / [id number] documented as of this encounter Advance Directives Latest Code Status [...] Advance Directives occurred with: Patient Care Teams Chainstitch Seat Joiner Relationship Specialty Start Date End Date Robina Matias DO PCP - General Family Medicine 10/07/19 documented as of this encounter
--- OUTSIDE RECORDS SUMMARY | 2023-05-24 05:29 | External Medical Summary | Summary of Care ---
Author Name Unknown Organization [facility] Address [address] [place] [address] Phone [phone] Care Team Providers Care Parts Counter Salesperson Name Role Phone Robina Matias DO Primary Care Provider [phone] Encounter Details Date Type Department Care Team (Late st Contact Info) Description 05/22/2023 [facility] [address] [place] [address] Anh Krishnamurthy DO [address] [facility] [place] [address] Allergies Active Allergy Reactions Criticality Noted Date Comments Bupropion Hives 10/07/2019 Other Reaction(s): HIVES documented as of this encounter (statuses as of 05/22/2023) Medications Medication Sig Dispensed Refills Start Date [...] as of this encounter (statuses as of 05/22/2023) Active Problems Problem Noted Date Diagnosed Date [...] as of this encounter (statuses as of 05/22/2023) Immunizations Name Administration Dates Next Due COVID-19 mRNA, LNP-s, No Pre serve, 2-Dose Series ([employer]) 03/31/2021,08/07/2020,07/17/2020 Pneumococcal Conjugate Vacc, 13 Valent (Prevnar) [...] Description 05/23/2023 4:15 PM EST Imaging Radiology [facility] 1st Floor, [place] [address] [facility] [place] [address] 06/19/2023 11:30 AM EST Immunization/Injectio n Hematology/Oncology Treatment, [place] [address] [place] [address] Lalitha, Chair 2 Hem Onc Sc[facility] [address] [place] [address] 06/27/2023 11:00 AM EST Office Visit Cardiology, [facility] [address] [place] [address] Radha Stephens CRNP 132 [place] [address] 08/21/2023 8:40 AM EDT Office Visit Family Practice [address] [place], [place] [address] [place] [address] Anh Krishnamurthy DO [address] [place] [address] 09/18/2023 10:00 AM EDT Laboratory Laboratory [place] [address] [place] [phone] Namrata Herron [address] [place] [address] [place] [address] 09/20/2023 11:00 AM EDT Imaging Radiology [facility] 1st [facility], [place] [address] [place] [address] 09/27/2023 10:45 AM EDT Office Visit Hematology/Oncology [facility] [address] [facility] [place] [address] Jv Singh MD [address] [facility] [place] [address] Scheduled Procedures Name Priority Associated Diagnoses Date/Ti [...] this encounter Medical Devices Implanted Type Area Online Marketing Manager Device Identifier Shelf Expiration Date Model / Serial / Lot Power Port 8fr Sngl Lumen Plas - [id number] Implanted:Qty: 1 on 11/07/2022 by Juan Antonio Jose DO at OR [facility] BARD : PERIPHERAL VASCULAR [id number] 03/20/2024 [id number] / / [id number] documented as of this encounter Procedures Procedure Name Priority Date/Time Associated Diagnosis Comments OUTSIDE LAB-CORONAVIRUS (COVID-19) Routine 05/20/2023 documented in this encounter Results * OUTSIDE LAB-CORONAVIRUS (COVID-19) (05/20/2023) [id number] DE LAB NOT DETECTED NOT DETECTED OUTSIDE LAB (SEE SCANNED REPORT) 05/20/2023 History Per Patient LABORATORY OUTSIDE LAB (SEE [...] Advance Directives occurred with: Patient Care Teams Parts Counter Salesperson Relationship Specialty Start Date End Date Robina Matias DO PCP - General Family Medicine 10/07/19 documented as of this encounter
--- OUTSIDE RECORDS SUMMARY | 2023-05-24 05:29 | External Medical Summary | Summary of Care ---
Author Name Unknown Organization [facility] Address [address] [facility] [place] [address] Phone [phone] Care Team Providers Care Sample Mounter Name Role Phone Robina Matias DO Primary Care Provider [phone] Encounter Details Date Type Department Care Team (Late st Contact Info) Description 05/18/2023 Result Scan Unspecified Department <No scans attached> Allergies Active Allergy Reactions Criticality Noted Date [...] Nicotine Polacrilex 2 MG Mouth/Throat Lozenge (Nicotine Mini)Indications:Nidia willett within last 12 months Apply 2 mg [...] hysterectomy 10/07/2019 Overview: Ovaries remain. Follows with [facility] Hector. Psychophysiological insomnia 10/07/2019 Benign essential tremor 04/10/2019 Dyslipidemia, goal LDL below 130 08/07/2016 documented as of this encounter (statuses as of 05/23/2023) Immunizations Name Administration Dates Next Due COVID-19 mRNA, LNP-s, No Pre serve, 2-Dose Series ([employer]) 03/31/2021,08/07/2020,07/17/2020 Pneumococcal Conjugate Vacc, 13 Valent (Prevnar) [...] Description 05/23/2023 4:15 PM EST Imaging Radiology [address] [facility] [address] 06/19/2023 11:30 AM EST Immunization/Injectio n Hematology/Oncology Treatment, [place] [address] [place] [address] Lalitha, Chair 2 Hem Onc Scenery [address] [place] [address] 06/27/2023 11:00 AM EST Office Visit Cardiology, [facility] 132 [facility] [place] [address] Radha Stephens CRNP [address] [facility] [address] 08/21/2023 8:40 AM EDT Office Visit Family Practice [address], [place] [address] [place] [address] Anh Krishnamurthy DO [address] [place] [address] 09/18/2023 10:00 AM EDT Laboratory Laboratory [place] [address] [place] [id number] Namrata Herron [place] [address] [place] [address] 09/20/2023 11:00 AM EDT Imaging Radiology [address] 132 [facility] [place] [address] 09/27/2023 10:45 AM EDT Office Visit Hematology/Oncology [employer] 200 [facility] [place] [address] Jv Singh MD 200 [facility] [place] [address] Scheduled Procedures Name Priority Associated Diagnoses Date/Ti me COLONOSCOPY FLEXIBLE PROXIMA L DIAGNOSTIC Recall History of colonic polyps Health Maintenance Due Date Last Done Comments Hepatitis B (1 of 3 - 3-dose series) 1965 Zoster Vaccines (1 of 2) 11/25/1986 DTaP,Tdap,and Td Vaccines (2 - Td or Tdap) 07/04/2020 07/04/2010 COVID-19 Vaccine ( - 2022- season) 2023 03/31/2021, 08/07/2020, 07/17/2020 [...] this encounter Medical Devices Implanted Type Area Income Tax Adjuster Device Identifier Shelf Expiration Date Model / Serial / Lot Power Port 8fr Sngl Lumen Plas - [id number] Implanted:Qty: 1 on 11/07/2022 by Juan Antonio Jose DO at OR [facility] BARD : PERIPHERAL VASCULAR [id number] 03/20/2024 [id number] / / [id number] documented as of this encounter Procedures Procedure Name Priority Date/Time Associated Diagnosis Comments OUTSIDE LAB RESULTS 05/18/2023 documented in this encounter Results * OUTSIDE LAB RESULTS (05/18/2023) 05/18/2023 No Physician Data Unknown LABORATORY documented in this encounter Advance Directives Latest [...] Advance Directives occurred with: Patient Care Teams Sample Mounter Relationship Specialty Start Date End Date Robina Matias DO PCP - General Family Medicine 10/07/19 documented as of this encounter
[2023-05-24 07:23] LABS: BUN Creatinine Ratio 15.4 (10-20); Calcium 8.6 mg/dl (8.6-10.3); Creatinine Clr Calc Pharmacy 119.1 ml/min; Est GFR (African American) 124.7 ml/min; Est GFR (Non-African American) 107.6 ml/min; Magnesium 1.8 mg/dl (1.7-2.4); Potassium 3.2 mmol/L (3.5-5.1)
[2023-05-24 07:33] LABS: Basophils # (auto) 0.01 K/uL (0.00-0.20); Basophils % (auto) 0.3 %; Eosinophils # (auto) 0.04 K/uL (0.00-0.50); Eosinophils % (auto) 1.3 %; Hematocrit (blood only) 31.4 % (37.0-47.0); Hemoglobin 10.8 g/dl (12.0-16.0); Immature Granulocytes # (auto) 0.02 K/uL (0.01-0.20); Immature Granulocytes % (auto) 0.6 %; Lymphocytes # (auto) 0.68 K/uL (1.20-3.40); Lymphocytes % (auto) 21.9 %; Mean Corpuscular Hemoglobin 30.1 pg (25.0-34.0); Mean Corpuscular Hgb Conc 34.4 g/dL (32.0-36.0); Mean Corpuscular Volume 87.5 fL (80.0-100.0); Mean Platelet Volume 9.9 fL (9.4-12.4); Monocytes # (auto) 0.51 K/uL (0.11-0.59); Monocytes % (auto) 16.5 %; Neutrophils # (auto) 1.84 K/uL (1.40-6.50); Neutrophils % (auto) 59.4 %; Platelet Count 264 K/uL (130-400); RDW Coefficient of Variation 12.7 % (11.5-14.5); RDW Standard Deviation 40.4 fL (36.4-46.3); Red Blood Count 3.59 M/uL (4.20-5.40)
[2023-05-24 07:42] LABS: Estimated Average Glucose 120 mg/dl; Hemoglobin A1C 5.8 % (4.5-5.6)
[2023-05-24] MEDS: MAGNESIUM OXIDE 400 MG TAB PO SCH (08:13)
[2023-05-24] MEDS: PANTOprazole 40 MG TAB PO SCH (08:13)
[2023-05-24] MEDS: ASPIRIN 81 MG ECTAB PO SCH (08:13)
[2023-05-24] MEDS: ESCITALOPRAM OXALATE 10 MG TAB PO SCH (08:13)
[2023-05-24] MEDS: FAMOTIDINE 20 MG TAB PO SCH (08:13)
[2023-05-24] MEDS: ENOXAPARIN INJ 40 MG/0.4 ML SYR SQ SCH (08:13)
[2023-05-24] MEDS: FLUTICASONE/VILANTEROL 100/25MCG 14 PUFFS/INHALER INH SCH (08:18)
[2023-05-24] MEDS ORDERED: POTASSIUM CHLORIDE CRTAB 20 MEQ TABCR PO STA (08:24)
[2023-05-24] MEDS ORDERED: THIAMINE HCL 200 MG in SODIUM CHLORIDE 0.9% 50 ML IV STA (08:29)
[2023-05-24] MEDS ORDERED: LOSARTAN POTASSIUM 50 MG TAB PO SCH (09:00)
[2023-05-24] MEDS: FOLIC ACID 1 MG in SYRINGE 9.8 ML IV SCH (09:42)
[2023-05-24] MEDS: CEROVITE ADV FORMULA TAB PO SCH (09:42)
[2023-05-24] MEDS: oxyCODONE/ACETAMINOPHEN 5mg/325mg TAB PO PRN ×3 (13:00→22:08)
--- NOTE | 2023-05-24 13:50 | Electrocardiogram Report ---
Test Reason : Blood Pressure : / mmHG Vent. Rate : 109 BPM Atrial Rate : 109 BPM P-R Int : 148 ms QRS Dur : 074 ms QT Int : 344 ms P-R-T Axes : 074 -60 074 degrees QTc Int : 463 ms Sinus tachycardia with occasional Premature ventricular complexes Possible Left atrial enlargement Low voltage QRS Left anterior fascicular block Inferior infarct (cited on or before 20-MAY-2023) Cannot rule out Anterior infarct (cited on or before 19-JAN-2014) Abnormal ECG When compared with ECG of 20-MAY-2023 13:29, Premature ventricular complexes are now Present Confirmed by Vince Wagoner ([id number]) on 05/24/2023 1:50:09 PM Referred By: REFERRED SELF Confirmed By:Vince Wagoner
--- NOTE | 2023-05-24 14:00 | Hospitalist Progress Note ---
Date of Service May 24, 2023 Assessment & Plan (1) Weakness: Plan: 57-year-old female with past medical history significant for hyperlipidemia, small cell lung cancer s/p chemoradiation, GERD, benign essential tremor, mixed conductive and sensorineural hearing loss of both ears, genetic leukocyte abnormalities , recurrent depression, generalized anxiety disorder, tobacco use disorder, Psychophysiological insomnia, COVID, comes because of weakness, nausea, poor appetite, dyspnea on exertion and ambulatory dysfunction. 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 On presentation, she was hypotensive improved with the fluids. Her Ozempic was held for the chemo but was restarted and she was taking low-dose. But because of ongoing symptoms she states she stopped Ozempic 1.5 weeks ago DIGITAL SOLUTIONS ARCHITECT. Patient denied febrile illness/flulike illness/chest pain/pain or burning with passing urine/diarrhea. 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 She is being managed for the following: Generalized weakness Poor appetite Nausea Patient has been on low-dose Ozempic, stopped 1.5 weeks ago DIGITAL SOLUTIONS ARCHITECT Last chemoradiation in March. At presentation, patient did not have appetite for 1 week DIGITAL SOLUTIONS ARCHITECT. At presentation, labs show possible starvation ketoacidosis. ABG were okay. Amylase and lipase normal. Monitor replete electrolytes. IV thiamine, IV folic acid, MVI with minerals. c/w IVF until PO intake improves. Dietitian consult, encourage p.o. intake and protein intake. Labs in AM. Follow blood culture. PT/OT. Hypotension: Noted at presentation, improved with fluids. Continue to monitor. Holding home Lasix and losartan. Prediabetes: A1c 5.8, lifestyle modification, follow-up A1c in 3 months. Small cell lung cancer: S/p chemoradiation. S/p prophylactic brain radiation. Follows with heme-onc Hypertension on losartan: We will monitor. Losartan on hold. Hyperlipidemia: On statin, continue Depression, Generalized anxiety disorder: Continue with home Lexapro & Xanax as needed DVT prophylaxis Lovenox Disposition: [facility] full code DVT prophylaxis: Lovenox Admission and Anticipated Discharge Date Admission Date: May 23, 2023 Subjective Patient was seen and examined at bedside. Patient was sitting up in bed, on room air, resting comfortably, not in any acute distress. Patient denies any new acute event overnight. Patient reports having nausea but no vomiting lately. Patient has not been able to eat properly since last 1 week. Denies any flulike illness or chest pain or diarrhea or acute changes in her bowel or bladder habits. Denies fever. Physical Exam Physical Exam: GENERAL: Alert and oriented x3. NAD, on RA. P[place]UNE, appears weak/ill. HEENT: No pallor, no icterus. Pupils equal, round and reactive to light. Oral mucosa moist. NECK: No JVD, no neck masses. HEART: S1 and S2 heard. Regular rate and rhythm. No murmur, no gallop. RESPIRATORY SYSTEM: Normal AP diameter. No accessory muscle use. No wheezing, no crackles. ABDOMEN: Soft, bowel sounds present, nontender, no distention. CENTRAL NERVOUS SYSTEM: No facial droop. Speech is clear. Obeys simple commands. Moves extremities. EXTREMITIES: trace ble edema, no erythema seen. Results & Data Results & Data Vital Signs (Past 12 Hours) Vital Signs Temp Pulse Resp BP Pulse Ox O2 Del Method 05/24/23 08:23 36.5 C 90 16 106/69 96 Room Air
[2023-05-24] MEDS: ALPRAZolam 0.5 MG TABLET PO PRN (20:30)
[2023-05-24] MEDS ORDERED: KETOROLAC TROMETHAMINE 15 MG/ML VIAL IV ONE (22:12)
[2023-05-25] MEDS: D5W AND NSS 1,000 ML IV SCH ×3 (00:04→16:41)
[2023-05-25 06:36] LABS: Hematocrit (blood only) 31.7 % (37.0-47.0); Hemoglobin 10.3 g/dl (12.0-16.0); Mean Corpuscular Hemoglobin 29.8 pg (25.0-34.0); Mean Corpuscular Hgb Conc 32.5 g/dL (32.0-36.0); Mean Corpuscular Volume 91.6 fL (80.0-100.0); Mean Platelet Volume 9.7 fL (9.4-12.4); Platelet Count 255 K/uL (130-400); RDW Coefficient of Variation 12.9 % (11.5-14.5); RDW Standard Deviation 42.6 fL (36.4-46.3); Red Blood Count 3.46 M/uL (4.20-5.40); White Blood Count 2.18 K/ul (4.8-10.8)
[2023-05-25 06:57] LABS: BUN Creatinine Ratio 5.6 (10-20); Calcium 8.3 mg/dl (8.6-10.3); Creatinine Clr Calc Pharmacy 114.7 ml/min; Est GFR (African American) 123.1 ml/min; Est GFR (Non-African American) 106.2 ml/min; Magnesium 1.6 mg/dl (1.7-2.4); Phosphorus 3.9 mg/dl (2.5-4.9); Potassium 3.6 mmol/L (3.5-5.1)
[2023-05-25] MEDS: ASPIRIN 81 MG ECTAB PO SCH (08:17)
[2023-05-25] MEDS: ESCITALOPRAM OXALATE 10 MG TAB PO SCH (08:18)
[2023-05-25] MEDS: FAMOTIDINE 20 MG TAB PO SCH (08:18)
[2023-05-25] MEDS: CEROVITE ADV FORMULA TAB PO SCH (08:19)
[2023-05-25] MEDS: MAGNESIUM OXIDE 400 MG TAB PO SCH (08:19)
[2023-05-25] MEDS: PANTOprazole 40 MG TAB PO SCH (08:19)
[2023-05-25] MEDS: FLUTICASONE/VILANTEROL 100/25MCG 14 PUFFS/INHALER INH SCH (08:20)
[2023-05-25] MEDS: ACETAMINOPHEN 325 MG TAB PO PRN (08:24)
[2023-05-25] MEDS: ALPRAZolam 0.5 MG TABLET PO PRN (08:24)
[2023-05-25] MEDS: FOLIC ACID 1 MG in SYRINGE 9.8 ML IV SCH (08:37)
[2023-05-25] MEDS: THIAMINE HCL 200 MG in SODIUM CHLORIDE 0.9% 50 ML IV SCH (08:40)
[2023-05-25] MEDS: MAGNESIUM SULFATE / D5W 1 GM/100 ML BAG IV SCH ×2 (09:09→10:47)
[2023-05-25] MEDS ORDERED: AMPICILLIN SOD/SULBACTAM SOD 1,500 MG in SODIUM CHLOR 0.9% MINI-B 100 ML IV SCH (09:45)
[2023-05-25] MEDS: ENOXAPARIN INJ 40 MG/0.4 ML SYR SQ SCH (11:35)
[2023-05-25] MEDS ORDERED: Nursing to Pharmacy Communication SCH (12:45)
[2023-05-25] MEDS: UNASYN 3000MG / NS q6h IV SCH ×2 (13:05→19:46)
[2023-05-25] MEDS ORDERED: KETOROLAC TROMETHAMINE 15 MG/ML VIAL IV ONE (14:05)
--- NOTE | 2023-05-25 14:47 | Hospitalist Progress Note ---
Date of Service May 25, 2023 Assessment & Plan (1) Weakness: Plan: Ms. Wilder is a 57-year-old female with past medical history significant for hyperlipidemia, small cell lung cancer s/p chemoradiation, GERD, benign essential tremor, mixed conductive and sensorineural hearing loss of both ears, genetic leukocyte abnormalities , recurrent depression, generalized anxiety disorder, tobacco use disorder, Psychophysiological insomnia, COVID, comes because of weakness, nausea, poor appetite, dyspnea on exertion and ambulatory dysfunction and admitted on 05/23 for evaluation of such. Per prior documentation" Patient states she is having this ongoing symptoms for more than a week FLAMER AFTER LASTING and was in the ER 3 times last 1 week FLAMER AFTER LASTING. On presentation, she was hypotensive improved with the fluids. Her Ozempic was held for the chemo but was restarted and she was taking low-dose. But because of ongoing symptoms she states she stopped Ozempic 1.5 weeks ago FLAMER AFTER LASTING. Patient denied febrile illness/flulike illness/chest pain/pain or burning with passing urine/diarrhea. She had very poor appetite for 1 week FLAMER AFTER LASTING. " She is being managed for the following: #Generalized weakness #Poor appetite #Nausea Patient has been on low-dose Ozempic, stopped 1.5 weeks ago FLAMER AFTER LASTING Last chemoradiation in March. At presentation, patient did not have appetite for 1 week FLAMER AFTER LASTING. At presentation, labs show possible starvation ketoacidosis. ABG were okay. Amylase and lipase normal--Improved Discontinue IVF at this time and encourage PO Given recent ozempic, will trial reglan prior to meals to aid in motility Monitor replete electrolytes, plan for mag/phos in am Dietitian consult, encourage p.o. intake and protein intake. -Transition Boost vanilla to peach and add lactulose intolerance as patient reporting aversion to milk based/creamy products at this time Labs in AM. Infectious work up negative to date PT/OT. #Chronic Bilateral mastoid effusion Noted on CT head from last ED visit. H/o complex ENT history, previously followed with Dr. Curry Discussed case with Dr. Santamaria, information coder ENT, who feels condition is likely chronic due to bilateral appearance on imaging, no erythema or edema around mastoid and no ear drainage Recommends continuing Unasyn (with transition to Augmentin) for a total of 14 days and she will have her office schedule an appt to establish as a new patient upon discharge No additional imaging required at this time Continue Unasyn at this time, EOT 06/08 Hypotension: Noted at presentation, improved with fluids. Continue to monitor. Holding home Lasix and losartan. Prediabetes: A1c 5.8, lifestyle modification, follow-up A1c in 3 months. Small cell lung cancer: S/p chemoradiation. S/p prophylactic brain radiation. Follows with heme-onc Hypertension on losartan: We will monitor. Losartan on hold. Hyperlipidemia: On statin, continue Depression, Generalized anxiety disorder: Continue with home Lexapro & Xanax as needed DVT prophylaxis Lovenox Disposition: [facility] full code DVT prophylaxis: Lovenox Admission and Anticipated Discharge Date Admission Date: May 23, 2023 Supervising Physician Co-Signing Physician Notes Patient was seen and examined at bedside for generalized weakness, poor appetite, nausea, chronic bilateral mastoid effusion. Case was discussed with ENT who recommended Unasyn/Augmentin course for total of 14 days. Patient to follow-up with ENT upon discharge. Patient updated regarding prediabetes and need for lifestyle modification/follow-up A1c in 3 months. Patient advised to follow-up with PCP for long-term management. I have seen and examined the patient and have discussed the case with the provider above. I agree with the assessment and plan as stated. Subjective No acute events overnight. Reports feeling marginally better, but notes more upset/nausea with lactuose types foods and the protein shakes. She denies vomiting, but notes constipation. She states that she takes a few bites of food (like salad) and feels very full, and cannot eat much more without belching. Otherwise, she notes the fatigue is chronic and not sure how much that will improve at this point give the recent radiation. Review of Systems Review of Systems: At least ten systems reviewed and negative except as noted in the HPI. Physical Exam Physical Exam: GENERAL: Alert and oriented x3. NAD, on RA. ill and tired, noted hairloss and generalized pallor HEENT: No pallor, no icterus. Pupils equal, round and reactive to light. Oral mucosa moist. EAC WNL, no drainage. TTP over mastoid bone on R but no erythema or warmth, + bone anchors visualized bilaterally with L hearing aide in place NECK: No JVD, no neck masses HEART: S1 and S2 heard. Regular rate and rhythm. No murmur, no gallop RESPIRATORY SYSTEM: Normal AP diameter. No accessory muscle use. No wheezing, no crackles ABDOMEN: Soft, bowel sounds present, nontender, no distention CENTRAL NERVOUS SYSTEM: No facial droop. Speech is clear. Obeys simple commands. Moves extremities EXTREMITIES: trace ble edema, no erythema seen Results & Data Results & Data Vital Signs (Past 12 Hours) Vital Signs Temp Pulse Resp BP Pulse Ox Pulse Ox O2 Del Method 05/25/23 14:20 36.6 C 80 16 123/84 97 Room Air 05/25/23 10:34 98 05/25/23 07:39 36.4 C L 75 16 117/78 98 Room Air O2 Flow Rate 05/25/23 14:20 05/25/23 10:34 0 05/25/23 07:39 Laboratory Results Short CBC 05/25/23 Range/Units 06:15 WBC 2.18 L (4.8-10.8) K/ul Hgb 10.3 L (12.0-16.0) g/dl Hct 31.7 L (37.0-47.0) % Plt Count 255 (130-400) K/uL BMP 05/25/23 06:15 Sodium 141 Potassium 3.6 Chloride 113 H Carbon Dioxide 24 BUN 3 L Creatinine 0.54 L Glucose 150 H Calcium 8.3 L Diagnostic Findings Chest X-Ray 05/23/23 16:22 XR chest 1V portable HISTORY: 57 years-old Female Sepsis acute sepsis COMPARISON: 05/20/2023 TECHNIQUE: AP view of the chest FINDINGS: Cardiomediastinal and hilar silhouettes are within normal limits. No pneumothorax, pleural effusion or airspace consolidation. The bones appear grossly intact. Right IJ [id number] catheter is unchanged. IMPRESSION: No acute process. ACT 112: Negative or not required by law. The above report was generated using voice recognition software. It may contain grammatical, syntax or spelling errors. Electronically signed by: Elton Blair M.D. 05/23/2023 4:48 PM Medications Administered Home Medications Medication Instructions Recorded Confirmed Last Taken alprazolam 0.5 mg tablet (Xanax) 0.5 mg PO DAILY PRN Anxiety 07/10/19 05/23/23 07/24/19 06:00 aspirin 81 mg chewable tablet 81 mg PO DAILY 10/11/22 05/23/23 Unknown cyclobenzaprine 10 mg tablet 10 mg PO HS PRN Muscle Spasm 10/11/22 05/23/23 Unknown escitalopram oxalate 10 mg tablet 10 mg PO QAM 10/11/22 05/23/23 Unknown (Lexapro) famotidine 20 mg tablet (Pepcid) 20 mg PO DAILY 10/11/22 05/23/23 Unknown fluticasone 250 mcg-salmeterol 50 1 inh inhalation BID 10/11/22 05/23/23 Unknown mcg/dose blistr powdr for inhalation (Advair Diskus) furosemide 20 mg tablet 20 mg PO DAILY PRN swelling 10/11/22 05/23/23 Unknown magnesium oxide 400 mg (241.3 mg 400 mg PO DAILY 10/11/22 05/23/23 Unknown magnesium) tablet ofloxacin 0.3 % ear drops 5 drp otic (ear) BID PRN as 10/11/22 05/23/23 Unknown directed omeprazole 40 mg capsule,delayed 40 mg PO QA 10/11/22 05/23/23 Unknown release ondansetron HCl 8 mg tablet 8 mg PO Q8H PRN Nausea And Vomiting 10/11/22 05/23/23 Unknown prochlorperazine maleate 10 mg 10 mg PO Q6H PRN Nausea And 10/11/22 05/23/23 Unknown tablet (Compazine) Vomiting losartan 50 mg tablet 50 mg PO QAM 11/20/22 05/23/23 Unknown rosuvastatin 20 mg tablet 20 mg PO HS 05/23/23 05/23/23 Unknown Active Medications Generic Name Dose Route Start Last [facility] Reason Stop Dose Admin Acetaminophen 650 mg 05/24/23 12:52 05/26/23 10:13 Acetaminophen 325 Mg Tab PO 06/22/23 23:33 650 mg Q8H PRN Administration pain/fever Alprazolam 0.5 mg 05/24/23 20:25 05/26/23 09:57 Alprazolam 0.5 Mg Tablet PO 06/22/23 23:33 0.5 mg BID PRN Administration Anxiety Aspirin 81 mg 05/24/23 09:00 05/26/23 10:12 Aspirin 81 Mg Ectab PO 06/23/23 08:59 81 mg DAILY ARTHUR Administration Enoxaparin Sodium 40 mg 05/24/23 08:00 05/26/23 11:23 Enoxaparin Inj 40 Mg/0.4 Ml Syr SQ 06/23/23 07:59 40 mg Q24H ARTHUR Administration Escitalopram Oxalate 10 mg 05/24/23 09:00 05/26/23 10:13 Escitalopram Oxalate 10 Mg Tab PO 06/23/23 08:59 10 mg QAM ARTHUR Administration Famotidine 20 mg 05/24/23 09:00 05/26/23 10:13 Famotidine 20 Mg Tab PO 06/23/23 08:59 20 mg DAILY ARTHUR Administration Fluticasone/Vilanterol 1 puffs 05/24/23 09:00 05/26/23 08:39 Fluticasone/Vilanterol 100/25mcg 14 Puffs/Inhaler INH 06/23/23 08:59 1 puffs DAILY ARTHUR Administration Heparin Sodium (Porcine) 5 ml 05/23/23 23:56 05/26/23 12:31 Heparin 100 Unit/Ml 5ml Flush FLUSH 06/22/23 23:55 5 ml PRN PRN Administration Flush Thiamine HCl 200 mg/ Sodium 52 mls @ 210 mls/hr 05/25/23 09:00 05/26/23 10:21 Chloride IV 06/24/23 08:59 Infused QAM ARTHUR Infusion Folic Acid 1 mg/ Syringe 10 mls @ 5 mls/min 05/24/23 09:00 05/26/23 09:58 IV 06/23/23 08:59 5 mls/min QAM ARTHUR Administration Ampicillin Sodium/Sulbactam 100 mls @ 200 mls/hr 05/25/23 10:00 05/26/23 13:13 Sodium 3,000 mg/ Sodium IV 06/04/23 09:59 Infused Chloride Q6H ARTHUR Infusion Losartan Potassium 50 mg 05/24/23 09:00 05/24/23 08:13 Losartan Potassium 50 Mg Tab PO 06/23/23 08:59 50 mg QAM ARTHUR Administration Magnesium Oxide 400 mg 05/24/23 09:00 05/26/23 10:13 Magnesium Oxide 400 Mg Tab PO 06/23/23 08:59 400 mg DAILY ARTHUR Administration Metoclopramide HCl 10 mg 05/26/23 11:30 05/26/23 12:30 Metoclopramide Hcl 10 Mg Tablet PO 06/25/23 11:29 10 mg ACHS ARTHUR Administration Multivitamins/Minerals 1 tab 05/24/23 09:00 05/26/23 10:13 Cerovite Adv Formula Tab PO 06/23/23 08:59 1 tab QAM ARTHUR Administration Oxycodone/Acetaminophen 1 tab 05/24/23 12:51 05/24/23 22:08 Oxycodone/Acetaminophen 5mg/325mg Tab PO 06/07/23 12:50 1 tab Q4H PRN Administration Mild-Mod Pain (Scale 1-6) Pantoprazole Sodium 40 mg 05/24/23 09:00 05/26/23 10:12 Pantoprazole 40 Mg Tab PO 06/23/23 08:59 40 mg QAM ARTHUR Administration Prochlorperazine 10 mg 05/23/23 23:34 05/26/23 09:52 Prochlorperazine Maleate 10 Mg Tab PO 06/22/23 23:33 10 mg Q6H PRN Administration Nausea And Vomiting Rosuvastatin Calcium 20 mg 05/23/23 23:34 05/25/23 20:46 Rosuvastatin Calcium 20 Mg Tab PO 06/22/23 23:33 20 mg HS ARTHUR Administration Senna/Docusate Sodium 1 tab 05/26/23 11:05 05/26/23 12:30 Docusate Sodium/Senna 50/8.6mg Tab PO 06/25/23 11:04 1 tab QAM ARTHUR Administration
[2023-05-25] MEDS: ROSUVASTATIN CALCIUM 20 MG TAB PO SCH (20:46)
[2023-05-26] MEDS: D5W AND NSS 1,000 ML IV SCH ×2 (00:38→11:06)
[2023-05-26] MEDS: UNASYN 3000MG / NS q6h IV SCH ×4 (00:56→19:35)
[2023-05-26 07:25] LABS: Hematocrit (blood only) 32.4 % (37.0-47.0); Hemoglobin 10.7 g/dl (12.0-16.0); Mean Corpuscular Hemoglobin 29.8 pg (25.0-34.0); Mean Corpuscular Volume 90.3 fL (80.0-100.0); Mean Platelet Volume 10.1 fL (9.4-12.4); Platelet Count 290 K/uL (130-400); RDW Coefficient of Variation 12.8 % (11.5-14.5); RDW Standard Deviation 42.5 fL (36.4-46.3); Red Blood Count 3.59 M/uL (4.20-5.40); White Blood Count 3.19 K/ul (4.8-10.8)
[2023-05-26 07:51] LABS: BUN Creatinine Ratio 3.7 (10-20); Calcium 8.6 mg/dl (8.6-10.3); Creatinine Clr Calc Pharmacy 114.7 ml/min; Est GFR (African American) 123.1 ml/min; Est GFR (Non-African American) 106.2 ml/min; Potassium 3.5 mmol/L (3.5-5.1)
[2023-05-26] MEDS: FLUTICASONE/VILANTEROL 100/25MCG 14 PUFFS/INHALER INH SCH (08:39)
[2023-05-26] MEDS: ALPRAZolam 0.5 MG TABLET PO PRN (09:57)
[2023-05-26] MEDS: FOLIC ACID 1 MG in SYRINGE 9.8 ML IV SCH (09:58)
[2023-05-26] MEDS: THIAMINE HCL 200 MG in SODIUM CHLORIDE 0.9% 50 ML IV SCH (09:58)
[2023-05-26] MEDS: PANTOprazole 40 MG TAB PO SCH (10:12)
[2023-05-26] MEDS: ASPIRIN 81 MG ECTAB PO SCH (10:12)
[2023-05-26] MEDS: ESCITALOPRAM OXALATE 10 MG TAB PO SCH (10:13)
[2023-05-26] MEDS: CEROVITE ADV FORMULA TAB PO SCH (10:13)
[2023-05-26] MEDS: FAMOTIDINE 20 MG TAB PO SCH (10:13)
[2023-05-26] MEDS: ACETAMINOPHEN 325 MG TAB PO PRN (10:13)
[2023-05-26] MEDS: MAGNESIUM OXIDE 400 MG TAB PO SCH (10:13)
[2023-05-26] MEDS: ENOXAPARIN INJ 40 MG/0.4 ML SYR SQ SCH (11:23)
[2023-05-26] MEDS: METOCLOPRAMIDE HCL 10 MG TABLET PO SCH ×3 (12:30→19:35)
[2023-05-26] MEDS: DOCUSATE SODIUM/SENNA 50/8.6MG TAB PO SCH (12:30)
[2023-05-26] MEDS: HEPARIN 100 UNIT/ML 5ML FLUSH FLUSH PRN (12:31)
[2023-05-26] MEDS: ROSUVASTATIN CALCIUM 20 MG TAB PO SCH (19:36)
[2023-05-27] MEDS: UNASYN 3000MG / NS q6h IV SCH ×4 (05:56→18:28)
[2023-05-27] MEDS: HEPARIN 100 UNIT/ML 5ML FLUSH FLUSH PRN ×2 (06:41→15:20)
[2023-05-27 07:14] LABS: Hematocrit (blood only) 31.7 % (37.0-47.0); Hemoglobin 10.6 g/dl (12.0-16.0); Mean Corpuscular Hemoglobin 29.9 pg (25.0-34.0); Mean Corpuscular Hgb Conc 33.4 g/dL (32.0-36.0); Mean Corpuscular Volume 89.3 fL (80.0-100.0); Mean Platelet Volume 10.3 fL (9.4-12.4); Platelet Count 303 K/uL (130-400); RDW Coefficient of Variation 12.8 % (11.5-14.5); Red Blood Count 3.55 M/uL (4.20-5.40); White Blood Count 3.65 K/ul (4.8-10.8)
[2023-05-27 07:27] LABS: BUN Creatinine Ratio 5.1 (10-20); Calcium 9.1 mg/dl (8.6-10.3); Est GFR (African American) 119.6 ml/min; Est GFR (Non-African American) 103.2 ml/min; Magnesium 1.6 mg/dl (1.7-2.4); Phosphorus 4.5 mg/dl (2.5-4.9); Potassium 3.7 mmol/L (3.5-5.1)
--- NOTE | 2023-05-27 08:04 | Hospitalist Progress Note ---
Date of Service May 26, 2023 Assessment & Plan (1) Weakness: Plan: Ms. Wilder is a 57-year-old female with past medical history significant for hyperlipidemia, small cell lung cancer s/p chemoradiation, GERD, benign essential tremor, mixed conductive and sensorineural hearing loss of both ears, genetic leukocyte abnormalities , recurrent depression, generalized anxiety disorder, tobacco use disorder, Psychophysiological insomnia, COVID, comes because of weakness, nausea, poor appetite, dyspnea on exertion and ambulatory dysfunction and admitted on 05/23 for evaluation of such. Per prior documentation" Patient states she is having this ongoing symptoms for more than a week DESTATICIZER FEEDER and was in the ER 3 times last 1 week DESTATICIZER FEEDER. On presentation, she was hypotensive improved with the fluids. Her Ozempic was held for the chemo but was restarted and she was taking low-dose. But because of ongoing symptoms she states she stopped Ozempic 1.5 weeks ago DESTATICIZER FEEDER. Patient denied febrile illness/flulike illness/chest pain/pain or burning with passing urine/diarrhea. She had very poor appetite for 1 week DESTATICIZER FEEDER. " She is being managed for the following: #Generalized weakness #Poor appetite #Nausea Patient has been on low-dose Ozempic, stopped 1.5 weeks ago DESTATICIZER FEEDER Last chemoradiation in March. At presentation, patient did not have appetite for 1 week DESTATICIZER FEEDER. At presentation, labs show possible starvation ketoacidosis. ABG were okay. Amylase and lipase normal--Improved Discontinue IVF at this time and encourage PO Given recent ozempic, will trial reglan prior to meals to aid in motility Monitor replete electrolytes, plan for mag/phos in am Dietitian consult, encourage p.o. intake and protein intake. -Transition Boost vanilla to peach and add lactulose intolerance as patient reporting aversion to milk based/creamy products at this time Labs in AM. Infectious work up negative to date PT/OT. #Chronic Bilateral mastoid effusion Noted on CT head from last ED visit. H/o complex ENT history, previously followed with Dr. Curry Discussed case with Dr. Santamaria, construction sales manager ENT, who feels condition is likely chronic due to bilateral appearance on imaging, no erythema or edema around mastoid and no ear drainage Recommends continuing Unasyn (with transition to Augmentin) for a total of 14 days and she will have her office schedule an appt to establish as a new patient upon discharge No additional imaging required at this time Continue Unasyn at this time, EOT 06/08 Hypotension: Noted at presentation, improved with fluids. Continue to monitor. Holding home Lasix and losartan. Prediabetes: A1c 5.8, lifestyle modification, follow-up A1c in 3 months. Small cell lung cancer: S/p chemoradiation. S/p prophylactic brain radiation. Follows with heme-onc Hypertension on losartan: We will monitor. Losartan on hold. Hyperlipidemia: On statin, continue Depression, Generalized anxiety disorder: Continue with home Lexapro & Xanax as needed DVT prophylaxis Lovenox Disposition: [facility] full code DVT prophylaxis: Lovenox Admission and Anticipated Discharge Date Admission Date: May 23, 2023 Subjective No acute events overnight. Reports feeling marginally better, but notes more upset/nausea with lactuose types foods and the protein shakes. She denies vomiting, but notes constipation. She states that she takes a few bites of food (like salad) and feels very full, and cannot eat much more without belching. Otherwise, she notes the fatigue is chronic and not sure how much that will improve at this point give the recent radiation. Physical Exam Constitutional: pallor, weak, pleasant Respiratory: normal respiratory effort, lungs clear to auscultation Cardiovascular: RRR, no murmur, no edema Results & Data Results & Data Vital Signs (Past 12 Hours) Vital Signs Temp Pulse Resp BP Pulse Ox O2 Del Method 05/27/23 07:58 36.8 C 81 16 124/83 96 Room Air 05/26/23 20:46 36.6 C 73 16 142/90 H 97 Room Air Laboratory Results Review from 05/26 Medications Administered Reviewed from 05/26
--- NOTE | 2023-05-27 08:05 | Hospitalist Progress Note ---
Date of Service May 27, 2023 Assessment & Plan (1) Weakness: Plan: Ms. Wilder is a 57-year-old female with past medical history significant for hyperlipidemia, small cell lung cancer s/p chemoradiation, GERD, benign essential tremor, mixed conductive and sensorineural hearing loss of both ears, genetic leukocyte abnormalities , recurrent depression, generalized anxiety disorder, tobacco use disorder, Psychophysiological insomnia, COVID, comes because of weakness, nausea, poor appetite, dyspnea on exertion and ambulatory dysfunction and admitted on 05/23 for evaluation of such. Per prior documentation" Patient states she is having this ongoing symptoms for more than a week EXTENSION COURSE COORDINATOR and was in the ER 3 times last 1 week EXTENSION COURSE COORDINATOR. On presentation, she was hypotensive improved with the fluids. Her Ozempic was held for the chemo but was restarted and she was taking low-dose. But because of ongoing symptoms she states she stopped Ozempic 1.5 weeks ago EXTENSION COURSE COORDINATOR. Patient denied febrile illness/flulike illness/chest pain/pain or burning with passing urine/diarrhea. She had very poor appetite for 1 week EXTENSION COURSE COORDINATOR. " Patient reporting ongoing left occiput headache with associated sleep/lapse in memory. Neurology consulted and feels may be secondary to radiation causing occiput nerve injury or from chronic mastoid effusions. She is being managed for the following: #Headache -Ongoing since radiation, exacerbated with recent illness -Neurology consult: -Thought to be multifactorial, chronic mastoid effusions v occiput nerve irritation s/p radiation -Medrol dose pack -Gabapentin 300mg qhs -Magnesium 400mg daily -Ensure follow up with Neuro as Op with MRI -EEG at request of family given concern for post-radiation seizure activity #Generalized weakness #Poor appetite #Nausea Patient has been on low-dose Ozempic, stopped 1.5 weeks ago EXTENSION COURSE COORDINATOR Last chemoradiation in March. At presentation, patient did not have appetite for 1 week EXTENSION COURSE COORDINATOR. At presentation, labs show possible starvation ketoacidosis. ABG were okay. Amylase and lipase normal--Improved Discontinue IVF at this time and encourage PO Given recent ozempic, will trial reglan prior to meals to aid in motility Monitor replete electrolytes, plan for mag/phos in am Dietitian consult, encourage p.o. intake and protein intake. -Transition Boost vanilla to peach and add lactulose intolerance as patient reporting aversion to milk based/creamy products at this time Labs in AM. Infectious work up negative to date PT/OT. #Chronic Bilateral mastoid effusion Noted on CT head from last ED visit. H/o complex ENT history, previously followed with Dr. Curry Discussed case with Dr. Santamaria, business continuity manager ENT, who feels condition is likely chronic due to bilateral appearance on imaging, no erythema or edema around mastoid and no ear drainage Recommends continuing Unasyn (with transition to Augmentin) for a total of 14 days and she will have her office schedule an appt to establish as a new patient upon discharge No additional imaging required at this time Continue Unasyn at this time, EOT 06/08 #Hypotension: Noted at presentation, improved with fluids. Continue to monitor. Holding home Lasix and losartan. #Prediabetes: A1c 5.8, lifestyle modification, follow-up A1c in 3 months. #Small cell lung cancer: S/p chemoradiation. S/p prophylactic brain radiation. Follows with heme-onc #Hypertension on losartan: We will monitor. Losartan on hold. #Hyperlipidemia: On statin, continue #Depression, Generalized anxiety disorder: Continue with home Lexapro & Xanax as needed DVT prophylaxis [facility]ovenox [facility] D[facility]: Lovenox Admission and Anticipated Discharge Date Admission Date: May 23, 2023 Subjective Evaluated patient this morning--initially she was stating she felt alright, noting the sensation of feeling hungry Reevaluation patient with family at bedside--patient endorsing similar headache as earlier in the weak. Family states that she will slur her speech and fall asleep midsentence, as well as have moments of left occiput pain than can distract patient from communicating Physical Exam Constitutional: generalized pallor and ill appearance, no acute distress Respiratory: normal respiratory effort, lungs clear to auscultation Cardiovascular: RRR, no murmur, no edema Gastrointestinal (Abdomen): normal bowel sounds, soft, nontender, no hepatosplenomegaly Neurologic: PERRL, EOMI, accommodation nl, no face palsy, no dysarthria Results & Data Results & Data Vital Signs (Past 12 Hours) Vital Signs Temp Pulse Resp BP Pulse Ox O2 Del Method 05/27/23 07:58 36.8 C 81 16 124/83 96 Room Air 05/26/23 20:46 36.6 C 73 16 142/90 H 97 Room Air Laboratory Results Short CBC 05/27/23 Range/Units 05:55 WBC 3.65 L (4.8-10.8) K/ul Hgb 10.6 L (12.0-16.0) g/dl Hct 31.7 L (37.0-47.0) % Plt Count 303 (130-400) K/uL BMP 05/27/23 05:55 Sodium 142 Potassium 3.7 Chloride 108 H Carbon Dioxide 27 BUN 3 L Creatinine 0.59 L Glucose 92 Calcium 9.1 Medications Administered Home Medications Medication Instructions Recorded Confirmed Last Taken alprazolam 0.5 mg tablet (Xanax) 0.5 mg PO DAILY PRN Anxiety 07/10/19 05/23/23 07/24/19 06:00 aspirin 81 mg chewable tablet 81 mg PO DAILY 10/11/22 05/23/23 Unknown cyclobenzaprine 10 mg tablet 10 mg PO HS PRN Muscle Spasm 10/11/22 05/23/23 Unknown escitalopram oxalate 10 mg tablet 10 mg PO QAM 10/11/22 05/23/23 Unknown (Lexapro) famotidine 20 mg tablet (Pepcid) 20 mg PO DAILY 10/11/22 05/23/23 Unknown fluticasone 250 mcg-salmeterol 50 1 inh inhalation BID 10/11/22 05/23/23 Unknown mcg/dose blistr powdr for inhalation (Advair Diskus) furosemide 20 mg tablet 20 mg PO DAILY PRN swelling 10/11/22 05/23/23 Unknown magnesium oxide 400 mg (241.3 mg 400 mg PO DAILY 10/11/22 05/23/23 Unknown magnesium) tablet ofloxacin 0.3 % ear drops 5 drp otic (ear) BID PRN as 10/11/22 05/23/23 Unknown directed omeprazole 40 mg capsule,delayed 40 mg PO QAM 10/11/22 05/23/23 Unknown release ondansetron HCl 8 mg tablet 8 mg PO Q8H PRN Nausea And Vomiting 10/11/22 05/23/23 Unknown prochlorperazine maleate 10 mg 10 mg PO Q6H PRN Nausea And 10/11/22 05/23/23 Unknown tablet (Compazine) Vomiting losartan 50 mg tablet 50 mg PO QAM 11/20/22 05/23/23 Unknown rosuvastatin 20 mg tablet 20 mg PO HS 05/23/23 05/23/23 Unknown Active Medications Generic Name Dose Route Start Last Admin Trade Name Freq PRN Reason Stop Dose Admin Acetaminophen 650 mg 05/24/23 12:52 05/26/23 10:13 Acetaminophen 325 Mg Tab PO 06/22/23 23:33 650 mg Q8H PRN Administration pain/fever Alprazolam 0.5 mg 05/24/23 20:25 05/27/23 08:52 Alprazolam 0.5 Mg Tablet PO 06/22/23 23:33 0.5 mg BID PRN Administration Anxiety Aspirin 81 mg 05/24/23 09:00 05/27/23 08:37 Aspirin 81 Mg Ectab PO 06/23/23 08:59 81 mg DAILY ARTHUR Administration Enoxaparin Sodium 40 mg 05/24/23 08:00 05/27/23 08:38 Enoxaparin Inj 40 Mg/0.4 Ml Syr SQ 06/23/23 07:59 40 mg Q24H ARTHUR Administration Escitalopram Oxalate 10 mg 05/24/23 09:00 05/27/23 08:36 Escitalopram Oxalate 10 Mg Tab PO 06/23/23 08:59 10 mg QAM ARTHUR Administration Famotidine 20 mg 05/24/23 09:00 05/27/23 08:36 Famotidine 20 Mg Tab PO 06/23/23 08:59 20 mg DAILY ARTHUR Administration Fluticasone/Vilanterol 1 puffs 05/24/23 09:00 05/27/23 08:39 Fluticasone/Vilanterol 100/25mcg 14 Puffs/Inhaler INH 06/23/23 08:59 1 puffs DAILY ARTHUR Administration Heparin Sodium (Porcine) 5 ml 05/23/23 23:56 05/27/23 06:41 Heparin 100 Unit/Ml 5ml Flush FLUSH 06/22/23 23:55 5 ml PRN PRN Administration Flush Thiamine HCl 200 mg/ Sodium 52 mls @ 210 mls/hr 05/25/23 09:00 05/27/23 09:29 Chloride IV 06/24/23 08:59 Infused QAM ARTHUR Infusion Folic Acid 1 mg/ Syringe 10 mls @ 5 mls/min 05/24/23 09:00 05/27/23 08:39 IV 06/23/23 08:59 5 mls/min QAM ARTHUR Administration Ampicillin Sodium/Sulbactam 100 mls @ 200 mls/hr 05/25/23 10:00 05/27/23 06:41 Sodium 3,000 mg/ Sodium IV 06/04/23 09:59 Infused Chloride Q6H ARTHUR Infusion Magnesium Sulfate/Dextrose 1 gm in 100 mls @ 50 mls/hr 05/27/23 08:15 05/27/23 12:31 Magnesium Sulfate / D5w IV 05/27/23 14:14 50 mls/hr Q2H ARTHUR Administration Losartan Potassium 50 mg 05/24/23 09:00 05/24/23 08:13 Losartan Potassium 50 Mg Tab PO 06/23/23 08:59 50 mg QAM ARTHUR Administration Magnesium Oxide 400 mg 05/24/23 09:00 05/27/23 08:37 Magnesium Oxide 400 Mg Tab PO 06/23/23 08:59 400 mg DAILY ARTHUR Administration Metoclopramide HCl 10 mg 05/26/23 11:30 05/27/23 12:31 Metoclopramide Hcl 10 Mg Tablet PO 06/25/23 11:29 10 mg ACHS ARTHUR Administration Multivitamins/Minerals 1 tab 05/24/23 09:00 05/27/23 08:36 Cerovite Adv Formula Tab PO 06/23/23 08:59 1 tab QAM ARTHUR Administration Oxycodone/Acetaminophen 1 tab 05/24/23 12:51 05/24/23 22:08 Oxycodone/Acetaminophen 5mg/325mg Tab PO 06/07/23 12:50 1 tab Q4H PRN Administration Mild-Mod Pain (Scale 1-6) Pantoprazole Sodium 40 mg 05/24/23 09:00 05/27/23 08:36 Pantoprazole 40 Mg Tab PO 06/23/23 08:59 40 mg QAM ARTHUR Administration Prochlorperazine 10 mg 05/23/23 23:34 05/26/23 09:52 Prochlorperazine Maleate 10 Mg Tab PO 06/22/23 23:33 10 mg Q6H PRN Administration Nausea And Vomiting Rosuvastatin Calcium 20 mg 05/23/23 23:34 05/26/23 19:36 Rosuvastatin Calcium 20 Mg Tab PO 06/22/23 23:33 20 mg HS ARTHUR Administration Senna/Docusate Sodium 1 tab 05/26/23 11:05 05/27/23 08:37 Docusate Sodium/Senna 50/8.6mg Tab PO 06/25/23 11:04 1 tab QAM ARTHUR Administration
[2023-05-27] MEDS: PANTOprazole 40 MG TAB PO SCH (08:36)
[2023-05-27] MEDS: FAMOTIDINE 20 MG TAB PO SCH (08:36)
[2023-05-27] MEDS: ESCITALOPRAM OXALATE 10 MG TAB PO SCH (08:36)
[2023-05-27] MEDS: MAGNESIUM SULFATE / D5W 1 GM/100 ML BAG IV SCH ×3 (08:36→12:31)
[2023-05-27] MEDS: CEROVITE ADV FORMULA TAB PO SCH (08:36)
[2023-05-27] MEDS: ASPIRIN 81 MG ECTAB PO SCH (08:37)
[2023-05-27] MEDS: METOCLOPRAMIDE HCL 10 MG TABLET PO SCH ×4 (08:37→20:40)
[2023-05-27] MEDS: DOCUSATE SODIUM/SENNA 50/8.6MG TAB PO SCH (08:37)
[2023-05-27] MEDS: MAGNESIUM OXIDE 400 MG TAB PO SCH (08:37)
[2023-05-27] MEDS: THIAMINE HCL 200 MG in SODIUM CHLORIDE 0.9% 50 ML IV SCH (08:38)
[2023-05-27] MEDS: ENOXAPARIN INJ 40 MG/0.4 ML SYR SQ SCH (08:38)
[2023-05-27] MEDS: FLUTICASONE/VILANTEROL 100/25MCG 14 PUFFS/INHALER INH SCH (08:39)
[2023-05-27] MEDS: FOLIC ACID 1 MG in SYRINGE 9.8 ML IV SCH (08:39)
[2023-05-27] MEDS: ALPRAZolam 0.5 MG TABLET PO PRN (08:52)
[2023-05-27] MEDS ORDERED: ACETAMINOPHEN 1,000 MG/100 ML VIAL IV STA (12:00)
--- NOTE | 2023-05-27 13:04 | Neurology Consultation ---
Date of Consultation May 27, 2023 Assessment & Plan (1) Headache: Patients headache as described may be multifactorial secondary to her mastoid effusions and possible irritation of the occpital nerve from the radiation. The family witnessed episodes involving language dysfunction with the headache could be SMART syndrome though typically that is seen as a later effect of radiation after a year. Stroke and seizure are less likely. Recommend treatment of her headaches and plan for outpatient follow-up as scheduled with a repeat MRI per oncology recommendations. -- Magnesium 400mg daily -- Medrol dose chucky or similar steroid taper -- Gabapentin 300mg qhs -- Outpatient follow-up with neurology/oncology and plan for MRI as scheduled. Telehealth Consultation Telehealth Information Telehealth Information: I performed this visit using a real-time telehealth connection between my location and the patients location ([facility]). After connecting through interactive tele-video, patient was identified by name and date of and/or wristband check.Patient (or authorized healthcare hostess party sales representative) was informed that this was a telemedicine visit and it was being conducted confidentially over secure lines. My office door was closed and no one else was present in the room with me.Patient (or authorized healthcare hostess party sales representative) provided consent to proceed with the visit, expressed an understanding of privacy and security of the telemedicine visit, and gave permission to have a hospital hostess party sales representative in the room in order to assist with the visit and to conduct portions of the visit, as needed. I informed the patient (or authorized healthcare hostess party sales representative) that I reviewed their record and presented the opportunity for them to ask any questions regarding the visit today. The patient agreed to participate. History of Present Illness Reason for Consultation: Headaches Requesting Physician: Dr. Shearer Attending Physician: Joanie Shearer MD History of Present Illness Kandy Wilder is a 57 yo F presenting with generalized weakness, dehydration, hypotension, headaches and slurred speech. She received prophylactic WBRT in March at [id number]. No known mets as of her last MRI in March. Family has noticed episodes where she will grab her head and have slurred speech/difficulty speaking with amnesia for the event. No focal weakness or numbness, no abnormal movements. The patient describes sharp pain over the left occipital region that she describes as stabbing and intermittent. She is otherwise not aware of the speech change described by family. Allergies Allergy/AdvReac Type Severity Reaction Status Date / Time bupropion Allergy Unknown HIVES Verified 05/23/23 19:42 Home Medications Medication Instructions Recorded Confirmed Type alprazolam 0.5 mg tablet (Xanax) 0.5 mg PO DAILY PRN Anxiety 07/10/19 05/23/23 History aspirin 81 mg chewable tablet 81 mg PO DAILY 10/11/22 05/23/23 History cyclobenzaprine 10 mg tablet 10 mg PO HS PRN Muscle Spasm 10/11/22 05/23/23 History escitalopram oxalate 10 mg tablet 10 mg PO QAM 10/11/22 05/23/23 History (Lexapro) famotidine 20 mg tablet (Pepcid) 20 mg PO DAILY 10/11/22 05/23/23 History fluticasone 250 mcg-salmeterol 50 1 inh inhalation BID 10/11/22 05/23/23 History mcg/dose blistr powdr for inhalation (Advair Diskus) furosemide 20 mg tablet 20 mg PO DAILY PRN swelling 10/11/22 05/23/23 History magnesium oxide 400 mg (241.3 mg 400 mg PO DAILY 10/11/22 05/23/23 History magnesium) tablet ofloxacin 0.3 % ear drops 5 drp otic (ear) BID PRN as 10/11/22 05/23/23 History directed omeprazole 40 mg capsule,delayed 40 mg PO QAM 10/11/22 05/23/23 History release ondansetron HCl 8 mg tablet 8 mg PO Q8H PRN Nausea And Vomiting 10/11/22 05/23/23 History prochlorperazine maleate 10 mg 10 mg PO Q6H PRN Nausea And 10/11/22 05/23/23 History tablet (Compazine) Vomiting losartan 50 mg tablet 50 mg PO QAM 11/20/22 05/23/23 History rosuvastatin 20 mg tablet 20 mg PO HS 05/23/23 05/23/23 History Patient History Medical History COPD (chronic obstructive pulmonary disease) Depression Metastatic primary lung cancer Diagnosis 09/20/22 Osteoarthritis Acid reflux Hearing deficit Anxiety Hyperlipidemia Surgical History S/P tonsillectomy History of surgery Hearing implants bilateral S/P bronchoscopy with biopsy 09/20/22 History of ear surgery MULTIPLE - RT History of tooth extraction History of hysterectomy Ovaries remain History of esophagogastroduodenoscopy (EGD) History of colonoscopy Family History Father Hearing loss Prostate cancer Mother Ovarian cancer Brother Lung cancer Sister No problems noted. Brother Myocardial infarction Brother No problems noted. Brother No problems noted. Son No problems noted. Other No family history of adverse response to anesthesia No family history of bleeding disorder Social History Smoking Status: Former smoker Tobacco Type: Cigarettes Age Started Using Tobacco: 16; Cigarettes Per Day: 1 PPD x 40yrs;; Second Hand Exposure: Yes; Do You Dip or Chew Tobacco: No; Hx Alcohol Use: Yes Alcohol Intake Frequency: 2-4 x/Month Hx Substance Use: No Preferred Language: Syriac Communication Ability: Effective Visual Impairment: No Limitations Hearing Ability: Cochlear Implant Water Quality Manager Required: No Beliefs That Will Affect Care: None marital status: Current Living Situation: Spouse current occupational status: employed 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 Oriented to person, place, and time. Fluent. Comprehension intact. Affect appropriate. Cranial Nerves: II: Reads NIHSS cards, pupils 3/3 to 2/2, III/IV/: Versions intact without nystagmus, no gaze preference. VII: Facial expression symmetric VIII: Hearing intact to voice Motor: Strength was symmetric and antigravity throughout. Pronator drift was absent. There were no abnormal movements. Coordination: Finger to nose was intact Reflexes: Unable to assess over telemedicine Results & Data Vital Signs (Past 12 Hours) Vital Signs Temp Pulse Resp BP Pulse Ox O2 Del Method 05/27/23 07:58 36.8 C 81 16 124/83 96 Room Air Laboratory Results Abnormal lab results 05/27/23 Range/Units 05:55 WBC 3.65 L (4.8-10.8) K/ul RBC 3.55 L (4.20-5.40) M/uL Hgb 10.6 L (12.0-16.0) g/dl Hct 31.7 L (37.0-47.0) % Chloride 108 H (98-107) mmol/L BUN 3 L (6-23) mg/dl Creatinine 0.59 L (0.6-1.2) mg/dl BUN/Creatinine Ratio 5.1 L (10-20) Magnesium 1.6 L (1.7-2.4) mg/dl Diagnostic Findings CT head - Unremarkable
[2023-05-27] MEDS ORDERED: bisacodyL 5 MG TABEC PO ONE (13:40)
[2023-05-27] MEDS ORDERED: methylPREDNISolone 4 MG TAB, 6 DAY TAPER PO SCH (13:45)
[2023-05-27] MEDS: POLYETHYLENE (MIRALAX) 17 GM PACK PO SCH ×2 (14:47→20:39)
[2023-05-27] MEDS: methylPREDNISolone 4 MG TAB PO SCH ×3 (14:58→20:40)
[2023-05-27] MEDS: GABAPENTIN 300 MG CAP PO SCH (20:40)
[2023-05-27] MEDS: ROSUVASTATIN CALCIUM 20 MG TAB PO SCH (20:41)
[2023-05-28] MEDS: UNASYN 3000MG / NS q6h IV SCH ×4 (00:10→19:44)
[2023-05-28 05:58] LABS: Hemoglobin 11.3 g/dl (12.0-16.0); Mean Corpuscular Hgb Conc 33.2 g/dL (32.0-36.0); Mean Corpuscular Volume 90.2 fL (80.0-100.0); Mean Platelet Volume 9.8 fL (9.4-12.4); Platelet Count 347 K/uL (130-400); RDW Coefficient of Variation 12.9 % (11.5-14.5); RDW Standard Deviation 42.9 fL (36.4-46.3); Red Blood Count 3.77 M/uL (4.20-5.40); White Blood Count 6.14 K/ul (4.8-10.8)
[2023-05-28 06:08] LABS: BUN Creatinine Ratio 10.9 (10-20); Calcium 9.7 mg/dl (8.6-10.3); Creatinine Clr Calc Pharmacy 96.8 ml/min; Est GFR (African American) 116.4 ml/min; Est GFR (Non-African American) 100.5 ml/min; Phosphorus 4.5 mg/dl (2.5-4.9); Potassium 4.4 mmol/L (3.5-5.1)
[2023-05-28] MEDS: ENOXAPARIN INJ 40 MG/0.4 ML SYR SQ SCH (07:52)
[2023-05-28] MEDS: methylPREDNISolone 4 MG TAB PO SCH ×3 (07:52→18:22)
[2023-05-28] MEDS: METOCLOPRAMIDE HCL 10 MG TABLET PO SCH ×4 (07:53→19:47)
[2023-05-28] MEDS: ALPRAZolam 0.5 MG TABLET PO PRN (08:02)
[2023-05-28] MEDS: FOLIC ACID 1 MG in SYRINGE 9.8 ML IV SCH (08:49)
[2023-05-28] MEDS: THIAMINE HCL 200 MG in SODIUM CHLORIDE 0.9% 50 ML IV SCH (08:55)
[2023-05-28] MEDS: FAMOTIDINE 20 MG TAB PO SCH (08:59)
[2023-05-28] MEDS: ESCITALOPRAM OXALATE 10 MG TAB PO SCH (08:59)
[2023-05-28] MEDS: ASPIRIN 81 MG ECTAB PO SCH (08:59)
[2023-05-28] MEDS: DOCUSATE SODIUM/SENNA 50/8.6MG TAB PO SCH ×2 (08:59→19:46)
[2023-05-28] MEDS: FLUTICASONE/VILANTEROL 100/25MCG 14 PUFFS/INHALER INH SCH (08:59)
[2023-05-28] MEDS: CEROVITE ADV FORMULA TAB PO SCH (09:00)
[2023-05-28] MEDS: MAGNESIUM OXIDE 400 MG TAB PO SCH (09:00)
[2023-05-28] MEDS: PANTOprazole 40 MG TAB PO SCH (09:00)
[2023-05-28] MEDS: POLYETHYLENE (MIRALAX) 17 GM PACK PO SCH ×3 (09:08→19:47)
[2023-05-28] MEDS: HEPARIN 100 UNIT/ML 5ML FLUSH FLUSH PRN ×2 (09:08→15:03)
[2023-05-28] MEDS ORDERED: bisacodyL 10 MG SUPP PR PRN (12:53)
--- NOTE | 2023-05-28 14:33 | XRay Report ---
KUB CLINICAL HISTORY: Constipation. FINDINGS: 2 AP supine abdominal radiographs are correlated with abdominal CT dated 05/20/2023. There is a nonobstructed abdominal bowel gas pattern. Moderate fecal retention is noted throughout the colo n. No evidence of intraperitoneal free air is seen on these supine images. There are no abnormal abdo faiza calcifications. The bony structures appear intact. IMPRESSION: Moderate constipation. Electronically signed by: Nick Alford M.D. 05/28/2023 2:32 PM
[2023-05-28] MEDS ORDERED: bisacodyL 10 MG SUPP PR ONE (14:41)
--- NOTE | 2023-05-28 16:08 | Electroencephalogram ---
EEG Procedure Note Date of Service May 28, 2023 Start / End Times Start Time: 06:36 End Time: 06:56 Referring Physician Joanie Shearer History A 57 year old female with seizures s/p brain readiation. EEG performed for evaluation of epileptiform acitvity. Home Medication List Medication Instructions Recorded Confirmed Type alprazolam 0.5 mg tablet (Xanax) 0.5 mg PO DAILY PRN Anxiety 07/10/19 05/23/23 History aspirin 81 mg chewable tablet 81 mg PO DAILY 10/11/22 05/23/23 History cyclobenzaprine 10 mg tablet 10 mg PO HS PRN Muscle Spasm 10/11/22 05/23/23 History escitalopram oxalate 10 mg tablet 10 mg PO QAM 10/11/22 05/23/23 History (Lexapro) famotidine 20 mg tablet (Pepcid) 20 mg PO DAILY 10/11/22 05/23/23 History fluticasone 250 mcg-salmeterol 50 1 inh inhalation BID 10/11/22 05/23/23 History mcg/dose blistr powdr for inhalation (Advair Diskus) furosemide 20 mg tablet 20 mg PO DAILY PRN swelling 10/11/22 05/23/23 History magnesium oxide 400 mg (241.3 mg 400 mg PO DAILY 10/11/22 05/23/23 History magnesium) tablet ofloxacin 0.3 % ear drops 5 drp otic (ear) BID PRN as 10/11/22 05/23/23 History directed omeprazole 40 mg capsule,delayed 40 mg PO QAM 10/11/22 05/23/23 History release ondansetron HCl 8 mg tablet 8 mg PO Q8H PRN Nausea And Vomiting 10/11/22 05/23/23 History prochlorperazine maleate 10 mg 10 mg PO Q6H PRN Nausea And 10/11/22 05/23/23 History tablet (Compazine) Vomiting losartan 50 mg tablet 50 mg PO QAM 11/20/22 05/23/23 History rosuvastatin 20 mg tablet 20 mg PO HS 05/23/23 05/23/23 History Inpatient Medication List Acetaminophen (Acetaminophen 325 Mg Tab) 650 mg PO Q8H PRN PRN Reason: pain/fever Stop: 06/22/23 23:33 Last Admin: 05/26/23 10:13 Dose: 650 mg Documented By: Admin: 05/25/23 08:24 Dose: 650 mg Documented By: Alprazolam (Alprazolam 0.5 Mg Tablet) 0.5 mg PO BID PRN PRN Reason: Anxiety Stop: 06/22/23 23:33 Last Admin: 05/28/23 08:02 Dose: 0.5 mg Documented By: Admin: 05/27/23 08:52 Dose: 0.5 mg Documented By: Admin: 05/26/23 09:57 Dose: 0.5 mg Documented By: Admin: 05/25/23 08:24 Dose: 0.5 mg Documented By: Admin: 05/24/23 20:30 Dose: 0.5 mg Documented By: JEAN Aspirin (Aspirin 81 Mg Ectab) 81 mg PO DAILY ARTHUR Stop: 06/23/23 08:59 Last Admin: 05/28/23 08:59 Dose: 81 mg Documented By: Admin: 05/27/23 08:37 Dose: 81 mg Documented By: Admin: 05/26/23 10:12 Dose: 81 mg Documented By: Admin: 05/25/23 08:17 Dose: 81 mg Documented By: Admin: 05/24/23 08:13 Dose: 81 mg Documented By: AGUSTIN Enoxaparin Sodium (Enoxaparin Inj 40 Mg/0.4 Ml Syr) 40 mg SQ Q24H ARTHUR Stop: 06/23/23 07:59 Last Admin: 05/28/23 07:52 Dose: 40 mg Documented By: JOSE A Admin: 05/27/23 08:38 Dose: 40 mg Documented By: Admin: 05/26/23 11:23 Dose: 40 mg Documented By: Admin: 05/25/23 11:35 Dose: 40 mg Documented By: Admin: 05/24/23 08:13 Dose: 40 mg Documented By: AGUSTIN Escitalopram Oxalate (Escitalopram Oxalate 10 Mg Tab) 10 mg PO QAM ARTHUR Stop: 06/23/23 08:59 Last Admin: 05/28/23 08:59 Dose: 10 mg Documented By: Admin: 05/27/23 08:36 Dose: 10 mg Documented By: Admin: 05/26/23 10:13 Dose: 10 mg Documented By: Admin: 05/25/23 08:18 Dose: 10 mg Documented By: Admin: 05/24/23 08:13 Dose: 10 mg Documented By: AV Famotidine (Famotidine 20 Mg Tab) 20 mg PO DAILY ARTHUR Stop: 06/23/23 08:59 Last Admin: 05/28/23 08:59 Dose: 20 mg Documented By: Admin: 05/27/23 08:36 Dose: 20 mg Documented By: Admin: 05/26/23 10:13 Dose: 20 mg Documented By: Admin: 05/25/23 08:18 Dose: 20 mg Documented By: Admin: 05/24/23 08:13 Dose: 20 mg Documented By: AV Fluticasone/Vilanterol (Fluticasone/Vilanterol 100/25mcg 14 Puffs/Inhaler) 1 puffs INH DAILY ARTHUR Stop: 06/23/23 08:59 Last Admin: 05/28/23 08:59 Dose: 1 puffs Documented By: Admin: 05/27/23 08:39 Dose: 1 puffs Documented By: Admin: 05/26/23 08:39 Dose: 1 puffs Documented By: Admin: 05/25/23 08:20 Dose: 1 puffs Documented By: Admin: 05/24/23 08:18 Dose: 1 puffs Documented By: AGUSTIN Gabapentin (Gabapentin 300 Mg Cap) 300 mg PO HS ARTHUR Stop: 06/26/23 20:59 Last Admin: 05/27/23 20:40 Dose: 300 mg Documented By: ADZ Heparin Sodium (Porcine) (Heparin 100 Unit/Ml 5ml Flush) 5 ml FLUSH PRN PRN PRN Reason: Flush Stop: 06/22/23 23:55 Last Admin: 05/28/23 15:03 Dose: 5 ml Documented By: Admin: 05/28/23 09:08 Dose: 5 ml Documented By: Admin: 05/27/23 15:20 Dose: 5 ml Documented By: Admin: 05/27/23 06:41 Dose: 5 ml Documented By: Admin: 05/26/23 12:31 Dose: 5 ml Documented By: PATRIC Thiamine HCl 200 mg/ Sodium (Chloride) 52 mls @ 210 mls/hr IV QAM ARTHUR Stop: 06/24/23 08:59 Last Infusion: 05/28/23 09:13 Dose: Infused Documented By: Admin: 05/28/23 08:55 Dose: 210 mls/hr Documented By: Infusion: 05/27/23 09:29 Dose: Infused Documented By: Admin: 05/27/23 08:38 Dose: 210 mls/hr Documented By: Infusion: 05/26/23 10:21 Dose: Infused Documented By: Admin: 05/26/23 09:58 Dose: 210 mls/hr Documented By: Infusion: 05/25/23 08:58 Dose: Infused Documented By: Admin: 05/25/23 08:40 Dose: 210 mls/hr Documented By: Folic Acid 1 mg/ Syringe 10 mls @ 5 mls/min IV QAM ARTHUR Stop: 06/23/23 08:59 Last Admin: 05/28/23 08:49 Dose: 5 mls/min Documented By: Admin: 05/27/23 08:39 Dose: 5 mls/min Documented By: Admin: 05/26/23 09:58 Dose: 5 mls/min Documented By: Admin: 05/25/23 08:37 Dose: 5 mls/min Documented By: Admin: 05/24/23 09:42 Dose: 5 mls/min Documented By: AV Ampicillin Sodium/Sulbactam Sodium 3,000 mg/ Sodium Chloride 100 mls @ 200 mls/hr IV Q6H ARTHUR Stop: 06/04/23 09:59 Last Infusion: 05/28/23 15:04 Dose: Infused Documented By: Admin: 05/28/23 14:32 Dose: 200 mls/hr Documented By: Infusion: 05/28/23 08:47 Dose: Infused Documented By: Admin: 05/28/23 07:54 Dose: 200 mls/hr Documented By: Infusion: 05/28/23 00:52 Dose: Infused Documented By: Admin: 05/28/23 00:10 Dose: 200 mls/hr Documented By: Infusion: 05/27/23 19:03 Dose: Infused Documented By: Admin: 05/27/23 18:28 Dose: 200 mls/hr Documented By: Infusion: 05/27/23 15:18 Dose: Infused Documented By: Admin: 05/27/23 14:41 Dose: 200 mls/hr Documented By: Infusion: 05/27/23 06:41 Dose: Infused Documented By: Admin: 05/27/23 05:56 Dose: 200 mls/hr Documented By: Infusion: 05/27/23 00:40 Dose: Infused Documented By: Admin: 05/27/23 00:00 Dose: 200 mls/hr Documented By: Infusion: 05/26/23 20:20 Dose: Infused Documented By: Admin: 05/26/23 19:35 Dose: 200 mls/hr Documented By: Infusion: 05/26/23 13:13 Dose: Infused Documented By: Admin: 05/26/23 12:30 Dose: 200 mls/hr Documented By: Infusion: 05/26/23 06:26 Dose: Infused Documented By: Admin: 05/26/23 05:56 Dose: 200 mls/hr Documented By: Infusion: 05/26/23 01:26 Dose: Infused Documented By: Admin: 05/26/23 00:56 Dose: 200 mls/hr Documented By: Infusion: 05/25/23 20:19 Dose: Infused Documented By: Admin: 05/25/23 19:46 Dose: 200 mls/hr Documented By: Infusion: 05/25/23 13:49 Dose: Infused Documented By: Admin: 05/25/23 13:05 Dose: 200 mls/hr Documented By: ENS Losartan Potassium (Losartan Potassium 50 Mg Tab) 50 mg PO QAM ARTHUR Stop: 06/23/23 08:59 Last Admin: 05/24/23 08:13 Dose: 50 mg Documented By: AV Magnesium Oxide (Magnesium Oxide 400 Mg Tab) 400 mg PO DAILY ARTHUR Stop: 06/23/23 08:59 Last Admin: 05/28/23 09:00 Dose: 400 mg Documented By: Admin: 05/27/23 08:37 Dose: 400 mg Documented By: Admin: 05/26/23 10:13 Dose: 400 mg Documented By: Admin: 05/25/23 08:19 Dose: 400 mg Documented By: Admin: 05/24/23 08:13 Dose: 400 mg Documented By: AV Methylprednisolone (Methylprednisolone 4 Mg Tab) 4 mg PO 0700,1300,1800 [facility] Stop: 05/28/23 18:01 Last Admin: 05/28/23 12:57 Dose: 4 mg Documented By: Admin: 05/28/23 07:52 Dose: 4 mg Documented By: MAP Metoclopramide HCl (Metoclopramide Hcl 10 Mg Tablet) 10 mg PO ACHS [facility] Stop: 06/25/23 11:29 Last Admin: 05/28/23 12:56 Dose: 10 mg Documented By: Admin: 05/28/23 07:53 Dose: 10 mg Documented By: Admin: 05/27/23 20:40 Dose: 10 mg Documented By: Admin: 05/27/23 17:16 Dose: 10 mg Documented By: Admin: 05/27/23 12:31 Dose: 10 mg Documented By: Admin: 05/27/23 08:37 Dose: 10 mg Documented By: Admin: 05/26/23 19:35 Dose: 10 mg Documented By: Admin: 05/26/23 17:26 Dose: 10 mg Documented By: Admin: 05/26/23 12:30 Dose: 10 mg Documented By: PATRIC Multivitamins/Minerals (Cerovite Adv Formula Tab) [facility] [place] [place] Stop: 06/23/23 08:59 Last Admin: 05/28/23 09:00 Dose: 1 tab Documented By: Admin: 05/27/23 08:36 Dose: 1 tab Documented By: Admin: 05/26/23 10:13 Dose: 1 tab Documented By: Admin: 05/25/23 08:19 Dose: 1 tab Documented By: Admin: 05/24/23 09:42 Dose: 1 tab Documented By: AGUSTIN Oxycodone/Acetaminophen (Oxycodone/Acetaminophen 5mg/325mg Tab) 1 tab PO Q4H PRN PRN Reason: Mild-Mod Pain (Scale 1-6) Stop: 06/07/23 12:50 Last Admin: 05/24/23 22:08 Dose: 1 tab Documented By: Admin: 05/24/23 17:40 Dose: 1 tab Documented By: Admin: 05/24/23 13:00 Dose: 1 tab Documented By: AGUSTIN Pantoprazole Sodium (Pantoprazole 40 Mg Tab) [facility] [place] [place] Stop: 06/23/23 08:59 Last Admin: 05/28/23 09:00 Dose: 40 mg Documented By: JOSE A Admin: 05/27/23 08:36 Dose: 40 mg Documented By: Admin: 05/26/23 10:12 Dose: 40 mg Documented By: Admin: 05/25/23 08:19 Dose: 40 mg Documented By: Admin: 05/24/23 08:13 Dose: 40 mg Documented By: AGUSTIN Polyethylene Glycol (Polyethylene (Miralax) 17 Gm Pack) 17 gm PO TID [facility] Stop: 06/26/23 13:59 Last Admin: 05/28/23 15:02 Dose: 17 gm Documented By: JOSE A Admin: 05/28/23 09:08 Dose: 17 gm Documented By: JOSE A Admin: 05/27/23 20:39 Dose: 17 gm Documented By: Admin: 05/27/23 14:47 Dose: 17 gm Documented By: CMV Prochlorperazine (Prochlorperazine Maleate 10 Mg Tab) 10 mg PO Q6H PRN PRN Reason: Nausea And Vomiting Stop: 06/22/23 23:33 Last Admin: 05/26/23 09:52 Dose: 10 mg Documented By: PATRIC Rosuvastatin Calcium (Rosuvastatin Calcium 20 Mg Tab) 20 mg PO HS [facility] Stop: 06/22/23 23:33 Last Admin: 05/27/23 20:41 Dose: 20 mg Documented By: Admin: 05/26/23 19:36 Dose: 20 mg Documented By: Admin: 05/25/23 20:46 Dose: 20 mg Documented By: Admin: 05/24/23 20:14 Dose: 20 mg Documented By: Admin: 05/24/23 00:44 Dose: Not Given Documented By: NCM Discontinued Medications Acetaminophen (Acetaminophen 325 Mg Tab) 650 mg PO Q4H PRN PRN Reason: pain/fever Stop: 06/22/23 23:33 Last Admin: 05/24/23 11:10 Dose: 650 mg Documented By: AGUSTIN Alprazolam (Alprazolam 0.5 Mg Tablet) 0.5 mg PO DAILY PRN PRN Reason: Anxiety Stop: 06/22/23 23:33 Last Admin: 05/24/23 08:21 Dose: 0.5 mg Documented By: AV Bisacodyl (Bisacodyl 5 Mg Tabec) 5 mg PO NOW ONE Stop: 05/27/23 13:41 Last Admin: 05/27/23 14:47 Dose: 5 mg Documented By: CMV Bisacodyl (Bisacodyl 10 Mg Supp) 10 mg OH ONE ONE Stop: 05/28/23 14:42 Last Admin: 05/28/23 15:02 Dose: 10 mg Documented By: MAP Sodium Chloride (Nss) 1,000 mls @ 999 mls/hr IV .Q1H1M ONE Stop: 05/23/23 17:24 Last Infusion: 05/23/23 18:38 Dose: Infused Documented By: Admin: 05/23/23 17:34 Dose: 999 mls/hr Documented By: CARMEL Magnesium Sulfate/Dextrose (Magnesium Sulfate / D5w) 1 gm in 100 mls @ 100 mls/hr IV NOW STA Stop: 05/23/23 19:02 Last Infusion: 05/23/23 19:21 Dose: Infused Documented By: Admin: 05/23/23 18:21 Dose: 100 mls/hr Documented By: CARMEL Dextrose/Sodium Chloride (D5w And Nss) 1,000 mls @ 125 mls/hr IV .Q8H ARTHUR Stop: 06/22/23 23:33 Last Admin: 05/26/23 11:06 Dose: Not Given Documented By: Infusion: 05/26/23 11:05 Dose: Infused Documented By: Admin: 05/26/23 00:38 Dose: 125 mls/hr Documented By: Infusion: 05/26/23 00:38 Dose: Infused Documented By: Admin: 05/25/23 16:41 Dose: 125 mls/hr Documented By: Infusion: 05/25/23 16:16 Dose: Infused Documented By: Admin: 05/25/23 08:16 Dose: 125 mls/hr Documented By: Infusion: 05/25/23 08:04 Dose: Infused Documented By: Admin: 05/25/23 00:04 Dose: 125 mls/hr Documented By: Infusion: 05/25/23 00:04 Dose: Infused Documented By: Admin: 05/24/23 16:17 Dose: 125 mls/hr Documented By: Infusion: 05/24/23 16:17 Dose: Infused Documented By: Admin: 05/24/23 08:18 Dose: 125 mls/hr Documented By: Infusion: 05/24/23 08:18 Dose: Infused Documented By: Admin: 05/24/23 00:42 Dose: 125 mls/hr Documented By: KATHERINE Thiamine HCl 200 mg/ Sodium (Chloride) 52 mls @ 210 mls/hr IV NOW STA Stop: 05/24/23 08:43 Last Infusion: 05/24/23 10:18 Dose: Infused Documented By: Admin: 05/24/23 09:42 Dose: 210 mls/hr Documented By: AV Magnesium Sulfate/Dextrose (Magnesium Sulfate / D5w) 1 gm in 100 mls @ 50 mls/hr IV Q2H ARTHUR Stop: 05/25/23 12:44 Last Infusion: 05/25/23 13:50 Dose: Infused Documented By: Admin: 05/25/23 10:47 Dose: 50 mls/hr Documented By: Infusion: 05/25/23 10:47 Dose: Infused Documented By: Admin: 05/25/23 09:09 Dose: 50 mls/hr Documented By: ENS Magnesium Sulfate/Dextrose (Magnesium Sulfate / D5w) 1 gm in 100 mls @ 50 mls/hr IV Q2H ARTHUR Stop: 05/27/23 14:14 Last Infusion: 05/27/23 14:42 Dose: Infused Documented By: Admin: 05/27/23 12:31 Dose: 50 mls/hr Documented By: Infusion: 05/27/23 12:31 Dose: Infused Documented By: Admin: 05/27/23 10:44 Dose: 50 mls/hr Documented By: Infusion: 05/27/23 10:36 Dose: Infused Documented By: Admin: 05/27/23 08:36 Dose: 50 mls/hr Documented By: CMV Acetaminophen (Ofirmev) 1,000 mg in 100 mls @ 400 mls/hr IV NOW STA Stop: 05/27/23 12:14 Last Infusion: 05/27/23 13:31 Dose: Infused Documented By: Admin: 05/27/23 13:05 Dose: 400 mls/hr Documented By: CMV Insulin Aspart (Insulin Aspart Per Unit Charge) 0 units SC ACHS ARTHUR Stop: 06/22/23 23:33 Last Admin: 05/24/23 00:45 Dose: Not Given Documented By: NCM Ketorolac Tromethamine (Ketorolac Tromethamine 15 Mg/Ml Vial) 15 mg IV NOW ONE Stop: 05/24/23 22:13 Last Admin: 05/24/23 23:00 Dose: 15 mg Documented By: JEAN Ketorolac Tromethamine (Ketorolac Tromethamine 15 Mg/Ml Vial) 15 mg IV NOW ONE Stop: 05/25/23 14:06 Last Admin: 05/25/23 14:34 Dose: 15 mg Documented By: ENS Methylprednisolone (Methylprednisolone 4 Mg Tab) 8 mg PO TODAY@1500,1800,2100 [facility] Stop: 05/27/23 21:01 Last Admin: 05/27/23 20:40 Dose: 8 mg Documented By: Admin: 05/27/23 18:28 Dose: 8 mg Documented By: Admin: 05/27/23 14:58 Dose: 8 mg Documented By: CMV Potassium Chloride (Potassium Chloride Crtab 20 Meq Tabcr) 40 meq PO NOW STA Stop: 05/24/23 08:25 Last Admin: 05/24/23 09:42 Dose: 40 meq Documented By: AV Senna/Docusate Sodium (Docusate Sodium/Senna 50/8.6mg Tab) 1 tab PO QAM [facility] Stop: 06/25/23 11:04 Last Admin: 05/28/23 08:59 Dose: 1 tab Documented By: Admin: 05/27/23 08:37 Dose: 1 tab Documented By: Admin: 05/26/23 12:30 Dose: 1 tab Documented By: MHN Description This is a 21 electrode EEG with a single channel dedicated to limited EKG. The electrodes were placed in accordance with the International 10-20 system. REPORT: At the onset of the EEG the patient is awake. The background is symmetric and well organized. There is a normal anterior to posterior gradient. The posterior dominant rhythm is 9 hz with low amplitude beta activity in the frontal head region. Photic does not induce any abnormalities. No stage II sleep transients are seen. Umang Interpretation This is a normal awake routine EEG. There is no evidence of focal slowing or epileptiform activity.
--- NOTE | 2023-05-28 16:41 | Hospitalist Progress Note ---
Date of Service May 28, 2023 Assessment & Plan (1) Weakness: Plan: Ms. Wilder is a 57-year-old female with past medical history significant for hyperlipidemia, small cell lung cancer s/p chemoradiation, GERD, benign essential tremor, mixed conductive and sensorineural hearing loss of both ears, genetic leukocyte abnormalities , recurrent depression, generalized anxiety disorder, tobacco use disorder, Psychophysiological insomnia, COVID, comes because of weakness, nausea, poor appetite, dyspnea on exertion and ambulatory dysfunction and admitted on 05/23 for evaluation of such. 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 On presentation, she was hypotensive improved with the fluids. Her Ozempic was held for the chemo but was restarted and she was taking low-dose. But because of ongoing symptoms she states she stopped Ozempic 1.5 weeks ago [employer]WRITING MANAGER. Patient denied febrile illness/flulike illness/chest pain/pain or burning with passing urine/diarrhea. She had very poor appetite for 1 week UNDERWRITING MANAGER. " Headache Likely related to radiation: Occipital Nerve irritation Chronic mastoid effusions may be contributing as well --Head CT:There is no hemorrhage, mass effect, or evidence of acute territorial ischemia by CT criteria. Large mastoid effusions. --EEG:This is a normal awake routine EEG. There is no evidence of focal slowing or epileptiform activity. -- Appreciate neurology input: Continue Medrol Dosepak, gabapentin, magnesium Needs follow-up with neurology as outpatient with MRI brain Headache resolved Constipation --KUB: Suggestive of moderate constipation Continue bowel regimen Encouraged to ambulate Generalized weakness Poor appetite Nausea Patient has been on low-dose Ozempic, stopped 1.5 weeks ago UNDERWRITING MANAGER Last chemoradiation in March. At presentation, patient did not have appetite for 1 week UNDERWRITING MANAGER. At presentation, labs show possible starvation ketoacidosis. ABG were okay. A mylase and lipase normal--Improved Given recent ozempic, will trial reglan prior to meals to aid in motility Monitor replete electrolytes, plan for mag/phos in am Dietitian consult, encourage p.o. intake and protein intake. Continue PT/OT. Chronic Bilateral mastoid effusion Noted on CT head from last ED visit. H/o complex ENT history, previously followed with Dr. Curry Prior hospitalist discussed case with Dr. Santamaria, control room tender ENT, who feels condition is likely chronic due to bilateral appearance on imaging, no erythema or edema around mastoid and no ear drainage Recommends continuing Unasyn (with transition to Augmentin) for a total of 14 days and she will have her office schedule an appt to establish as a new patient upon discharge No additional imaging required at this time Continue Unasyn while hospitalized Hypotension: BP improved with fluids Hold Lasix and losartan Monitor BP Prediabetes: HbA1c 5.8, lifestyle modification Small cell lung cancer: S/p chemoradiation. S/p prophylactic brain radiation Follows with heme-onc Hyperlipidemia: On statin Depression Generalized anxiety disorder Continue with home Lexapro & Xanax as needed DVT Px: Lovenox SQ Code Status Full code Admission and Anticipated Discharge Date Admission Date: May 23, 2023 Subjective Patient is seen and examined at bedside Reports constipation Denies any nausea, vomiting, abdominal pain, dyspnea, dizziness, chest pain Discussed with patient's family at bedside Headache resolved No other complaints Review of Systems Review of Systems: All systems reviewed & are unremarkable except as noted in Subjective Physical Exam Physical Exam: Physical Exam: Vitals signs as noted above General Appearance:Moderately built and nourished, no apparent distress Head: normocephalic, Atraumatic Eyes: normal inspection, EOMI Neck: supple, Trachea midline Respiratory/Chest: Normal breath sounds, CTA, No accessory muscle use Cardiovascular: S1, S2, No murmur Abdomen/GI:Soft, Non tender, Bowel sounds present Extremities/Musculoskeletal:normal inspection, no edema Neurologic/Psych:AAOX3, grossly no focal neurological deficits Skin: normal color, warm Results & Data Results & Data Vital Signs (Past 12 Hours) Vital Signs Temp Pulse Pulse Resp BP Pulse Ox O2 Del Method 05/28/23 12:51 36.7 C 91 H 18 130/80 98 Room Air 05/28/23 09:00 Room Air 05/28/23 07:54 36.6 C 73 18 110/74 96 Room Air 05/28/23 07:16 36.5 C 75 15 109/73 96 Room Air Laboratory Results Short CBC 05/28/23 Range/Units 05:34 WBC 6.14 (4.8-10.8) K/ul Hgb 11.3 L (12.0-16.0) g/dl Hct 34.0 L (37.0-47.0) % Plt Count 347 (130-400) K/uL BMP 05/28/23 05:34 Sodium 139 Potassium 4.4 Chloride 106 Carbon Dioxide 25 BUN 7 Creatinine 0.64 Glucose 128 H Calcium 9.7
[2023-05-28] MEDS: GABAPENTIN 300 MG CAP PO SCH (19:45)
[2023-05-28] MEDS: ROSUVASTATIN CALCIUM 20 MG TAB PO SCH (19:47)
[2023-05-28] MEDS: ACETAMINOPHEN 325 MG TAB PO PRN (19:53)
[2023-05-28] MEDS ORDERED: methylPREDNISolone 4 MG TAB PO SCH (21:00)
[2023-05-29] MEDS: UNASYN 3000MG / NS q6h IV SCH ×3 (00:10→13:20)
[2023-05-29] MEDS: methylPREDNISolone 4 MG TAB PO SCH ×2 (06:07→13:19)
[2023-05-29 06:25] LABS: BUN Creatinine Ratio 12.2 (10-20); Calcium 9.7 mg/dl (8.6-10.3); Creatinine Clr Calc Pharmacy 83.7 ml/min; Est GFR (African American) 105.7 ml/min; Est GFR (Non-African American) 91.2 ml/min; Potassium 4.3 mmol/L (3.5-5.1)
[2023-05-29] MEDS: METOCLOPRAMIDE HCL 10 MG TABLET PO SCH ×2 (07:35→11:34)
[2023-05-29] MEDS: ALPRAZolam 0.5 MG TABLET PO PRN (07:36)
[2023-05-29] MEDS: ENOXAPARIN INJ 40 MG/0.4 ML SYR SQ SCH (07:37)
[2023-05-29] MEDS: ASPIRIN 81 MG ECTAB PO SCH (09:06)
[2023-05-29] MEDS: CEROVITE ADV FORMULA TAB PO SCH (09:06)
[2023-05-29] MEDS: PANTOprazole 40 MG TAB PO SCH (09:06)
[2023-05-29] MEDS: ESCITALOPRAM OXALATE 10 MG TAB PO SCH (09:06)
[2023-05-29] MEDS: DOCUSATE SODIUM/SENNA 50/8.6MG TAB PO SCH (09:06)
[2023-05-29] MEDS: FLUTICASONE/VILANTEROL 100/25MCG 14 PUFFS/INHALER INH SCH (09:07)
[2023-05-29] MEDS: FAMOTIDINE 20 MG TAB PO SCH (09:07)
[2023-05-29] MEDS: POLYETHYLENE (MIRALAX) 17 GM PACK PO SCH ×2 (09:07→13:10)
[2023-05-29] MEDS: FOLIC ACID 1 MG in SYRINGE 9.8 ML IV SCH (09:07)
[2023-05-29] MEDS: MAGNESIUM OXIDE 400 MG TAB PO SCH (09:07)
[2023-05-29] MEDS: THIAMINE HCL 200 MG in SODIUM CHLORIDE 0.9% 50 ML IV SCH (09:22)
[2023-05-29] MEDS: HEPARIN 100 UNIT/ML 5ML FLUSH FLUSH PRN (09:22)
[2023-05-29] MEDS ORDERED: bisacodyL 5 MG TABEC PO ONE (09:50)
--- NOTE | 2023-05-29 13:37 | Discharge Summary ---
Discharge Summary Date of Service May 29, 2023 Notes For Next Care Provider Pt will need an MRI of brain as outpatient and follow up with neurology and oncology Neurology feels headaches likely 2/2 occipital nerve irritation, currently treating with Medrol Dose pack. She will need follow up with Dr. Santamaria for ENT due to chronic mastoid effusion. Blood pressure low normal while hospitalized. Her Losartan and lasix have been on hold. Medication Changes From Visit Continue Medrol Dosepak that was started in the hospital. * 05/29: next dose at 5 p.m. and 9 p.m. * 10: 1 tablet three times a day, 7 a.m., 1 p.m., 9 p.m. * 05/31: 1 tablet two times a daily, 7 a.m. and 9 p.m. * 06/01: 1 tablet daily at 7 a.m. and then complete Augmentin 875mg twice daily for additional 12 days through 06/10/22. Gabapentin 300mg at bedtime. Recommend to continue with over the counter miralax 17g three times daily. Recommend continue with Senna S twice daily. Continue with all other medications as prescribed. Continue to hold your blood pressure medication, losartan. Her blood pressure has been running on the lower side during hospital stay. Admission HPI Per Admitting Provider 57-year-old female with past medical history significant for hyperlipidemia, small cell lung cancer s/p chemoradiation, GERD, benign essential tremor, mixed conductive and sensorineural hearing loss of both ears, genetic leukocyte abnormalities , recurrent depression, generalized anxiety disorder, tobacco use disorder, Psychophysiological insomnia, history of COVID, comes because of weakness, nausea, poor appetite, dyspnea on exertion and ambulatory dysfunction. Patient states she is having this ongoing symptoms for more than a week and was in the ER 3 times in last 1 week. On presentation today she was hypotensive improved with the fluids. Her Ozempic was held for the chemo but was restarted and she was taking low-dose. But because of ongoing symptoms she states she stopped Ozempic last Sunday. Having some headache. Has some back pain. No runny nose or sore throat. No cough. No fevers. No chest pain. Today has some mild abdominal discomfort. Did not move her bowels in last 1 week. On presentation her blood pressure was low but improved with the fluids. She is also sleeping a lot lately. But her states since she had prophylactic brain radiation she has been sleeping a lot. She finished her chemoradiation in March 2023. Past medical history. As mentioned above. Past surgical history. Bronchoscopy. Colonoscopy. EGD. Multiple right ear surgeries. Excision of subcutaneous tumor neck/chest. Partial hysterectomy. Social history. . Quit smoking in 10/19/2022. Smoked 1 pack a day for 35 years. Alcohol on the weekends. No drug use. Family history. No known family history. Admission Exam Per Admitting Provider General- Not in distress Head- atraumatic Eyes- PERRL, EOMI. ENT- oropharynx clear Neck- supple, no JVD. Lungs- clear to auscultation no wheezing or crackles. Heart- regular rhythm; no murmur, no gallop. Abdomen- normal bowel sounds, soft, nontender, no distension. Extremities- no pretibial edema, no erythema seen. Neuro- alert, oriented x 3; PERRL, no facial palsy; no dysarthria; moves extremities. Skin- warm & dry Principal Dx & Hospital Course #1 = Principal Diagnosis (1) Weakness: Ms. Wilder is a 57-year-old female with past medical history significant for hyperlipidemia, small cell lung cancer s/p chemoradiation, GERD, benign essential tremor, mixed conductive and sensorineural hearing loss of both ears, genetic leukocyte abnormalities , recurrent depression, generalized anxiety disorder, tobacco use disorder, Psychophysiological insomnia, COVID, comes because of weakness, nausea, poor appetite, dyspnea on exertion and ambulatory dysfunction and admitted on 05/23 for evaluation of such. Per prior documentation" Patient states she is having this ongoing symptoms for more than a week [employer] and was in the ER 3 times last 1 week [employer]. On presentation, she was hypotensive improved with the fluids. Her Ozempic was held for the chemo but was restarted and she was taking low-dose. But because of ongoing symptoms she states she stopped Ozempic 1.5 weeks ago [employer]. Patient denied febrile illness/flulike illness/chest pain/pain or burning with passing urine/diarrhea. She had very poor appetite for 1 week [employer]. " Headache Likely related to radiation: Occipital Nerve irritation Chronic mastoid effusions may be contributing as well --Head CT:There is no hemorrhage, mass effect, or evidence of acute territorial ischemia by CT criteria. Large mastoid effusions. --EEG:This is a normal awake routine EEG. There is no evidence of focal slowing or epileptiform activity. -- Appreciate neurology input: Continue Medrol Dosepak, gabapentin, magnesium Needs follow-up with neurology as outpatient with MRI brain Headache resolved Constipation --KUB: Suggestive of moderate constipation Continue bowel regimen Encouraged to ambulate having small bowel movements on day of discharge Generalized weakness Poor appetite Nausea Patient has been on low-dose Ozempic, stopped 1.5 weeks ago [employer] Last chemoradiation in March. At presentation, patient did not have appetite for 1 week [employer]. At presentation, labs show possible starvation ketoacidosis. ABG were okay. Amylase and lipase normal--Improved Given recent ozempic, will trial reglan prior to meals to aid in motility Monitor replete electrolytes, plan for mag/phos in am Dietitian consult, encourage p.o. intake and protein intake. Chronic Bilateral mastoid effusion Noted on CT head from last ED visit. H/o complex ENT history, previously followed with Dr. Curry Prior hospitalist discussed case with Dr. Santamaria, professional driver ENT, who feels condition is likely chronic due to bilateral appearance on imaging, no erythema or edema around mastoid and no ear drainage Recommends continuing Unasyn (with transition to Augmentin) for a total of 14 days and she will have her office schedule an appt to establish as a new patient upon discharge No additional imaging required at this time Will send prescription for unasyn Hypotension: BP improved with fluids continue to hold losartan and lasix resume at discretion of PCP Prediabetes: HbA1c 5.8, lifestyle modification Small cell lung cancer: S/p chemoradiation. S/p prophylactic brain radiation Follows with heme-onc Hyperlipidemia: On statin Depression Generalized anxiety disorder Continue with home Lexapro & Xanax as needed Dispo: D/C to home with , is at bedside and all questions were answered. Discharge Exam Gen: WD/WN, F, NAD, A&O x3, alopecia HEENT: Normocephalic, atraumatic, conjunctivae moist, sclerae anicteric, mucous membranes moist. Lung: Clear to Auscultation bilaterally, no wheezes/rales/rhonchi Heart: Regular rate, regular rhythm, no murmurs, rubs, or gallops Abdomen: Soft, NT, ND +BS x 4 Extremities: No edema Skin: Warm, no rash, negative turgor. Updated Medication List Medication Instructions Recorded Confirmed Type alprazolam 0.5 mg tablet (Xanax) 0.5 mg PO DAILY PRN Anxiety 07/10/19 05/23/23 History aspirin 81 mg chewable tablet 81 mg PO DAILY 10/11/22 05/23/23 History cyclobenzaprine 10 mg tablet 10 mg PO HS PRN Muscle Spasm 10/11/22 05/23/23 History escitalopram oxalate 10 mg tablet 10 mg PO QAM 10/11/22 05/23/23 History (Lexapro) famotidine 20 mg tablet (Pepcid) 20 mg PO DAILY 10/11/22 05/23/23 History fluticasone 250 mcg-salmeterol 50 1 inh inhalation BID 10/11/22 05/23/23 History mcg/dose blistr powdr for inhalation (Advair Diskus) furosemide 20 mg tablet 20 mg PO DAILY PRN swelling 10/11/22 05/23/23 History magnesium oxide 400 mg (241.3 mg 400 mg PO DAILY 10/11/22 05/23/23 History magnesium) tablet ofloxacin 0.3 % ear drops 5 drp otic (ear) BID PRN as 10/11/22 05/23/23 History directed omeprazole 40 mg capsule,delayed 40 mg PO QAM 10/11/22 05/23/23 History release ondansetron HCl 8 mg tablet 8 mg PO Q8H PRN Nausea And Vomiting 10/11/22 05/23/23 History prochlorperazine maleate 10 mg 10 mg PO Q6H PRN Nausea And 10/11/22 05/23/23 History tablet (Compazine) Vomiting losartan 50 mg tablet 50 mg PO QAM 11/20/22 05/23/23 History rosuvastatin 20 mg tablet 20 mg PO HS 05/23/23 05/23/23 History amoxicillin 875 mg-potassium 1 tab PO Q12H #24 tabs 05/29/23 Rx clavulanate 125 mg tablet gabapentin 300 mg capsule 300 mg PO HS #30 caps 05/29/23 Rx methylprednisolone 4 mg tablet See Rx Instructions .Route 05/29/23 Rx .COMPLEX #8 tabs polyethylene glycol 3350 17 gram 17 g PO TID #30 ea 05/29/23 Rx oral powder packet (Miralax) sennosides 8.6 mg-docusate sodium 1 tab PO BID #14 tabs 05/29/23 Rx 50 mg tablet (Senokot-S) Hospital Stay Data Consultations 05/23/23 19:12 ED Decision to Admit Stat 05/25/23 15:33 Consult Otolaryngology (Head and Neck) Routine 05/27/23 12:00 Consult Neurology Routine Pending Results Patient Have Any Pending Studies at Discharge: No Discharge Instructions Given to Patient (Per Discharging Provider) MEDICATION CHANGES: Continue Medrol Dosepak that was started in the hospital. * 05/29: next dose at 5 p.m. and 9 p.m. * 05/30: 1 tablet three times a day, 7 a.m., 1 p.m., 9 p.m. * 05/31: 1 tablet two times a daily, 7 a.m. and 9 p.m. * 06/01: 1 tablet daily at 7 a.m. and then complete Augmentin 875mg twice daily for additional 12 days through 06/10/22. Gabapentin 300mg at bedtime. Recommend to continue with over the counter miralax 17g three times daily. Recommend continue with Senna S twice daily. Continue with all other medications as prescribed. Continue to hold your blood pressure medication, losartan. Her blood pressure has been running on the lower side during hospital stay. STOP Ozempic. RECOMMENDATIONS FOR FOLLOW-UP: Please follow up with PCP as scheduled. It is recommended you have an MRI of brain which your primary care provider can arrange. Complete antibiotics as prescribed. It is recommended you follow-up with the ENT, Dr. Santamaria, as outpatient. If you do not hear from them within 1 week would recommend your primary care provider obtaining appointment. Recommend monitoring your blood pressure twice daily at home. Keep a log of this and take it with you to your primary care provider appointment. Your blood pressure medication losartan is currently being held due to blood pressure being on the lower side in the hospital. It is recommended you follow- up with your primary care provider on when to resume this medication. OTHER INSTRUCTIONS: Seek medical attention if you have: * temperature above 101 * chest pain or trouble breathing * abdominal pain, nausea, vomiting * diarrhea, dark stools or bloody stools * any unanswered questions or concerns Call 911 if symptoms are severe. Please take good care of yourself. It has been a pleasure taking care of you. Please take care of yourself. If you have any questions regarding your recent hospitalization please contact [facility] and request Pieter Vasquez @ [phone]. Kinga Alfaro PA-C Total Time Total Time Spent Total Time Spent (In Minutes): 45 minutes Supervising Physician Co-Signing Physician Notes Patient is seen and examined on day of discharge. Patient had bowel movement overnight and this afternoon as well. No recurrence of headache this morning. Denies any chest pain, dyspnea, dizziness, nausea, vomiting, abdominal pain. Tolerating diet. Physical Exam: Vitals signs as noted above General Appearance:Moderately built and nourished, no apparent distress Head: normocephalic, Atraumatic Eyes: normal inspection, EOMI Neck: supple, Trachea midline Respiratory/Chest: Normal breath sounds, CTA, No accessory muscle use Cardiovascular: S1, S2, No murmur Abdomen/GI:Soft, Non tender, Bowel sounds present Extremities/Musculoskeletal:normal inspection, no edema Neurologic/Psych:AAOX3, grossly no focal neurological deficits Skin: normal color, warm Postradiation headache Chronic mastoid effusion Continue Medrol Dosepak, gabapentin, magnesium Advised to get outpatient MRI and follow-up with neurology Advised to complete Augmentin course Constipation Resolved Continue bowel regimen as needed only. Personally called and updated patient. I personally reviewed the record. Patient is interviewed and examined at bedside. Patient's care is coordinated with Kinga Alfaro PA-C. Please refer to the documentation above for details of patient's presentation and for discussion of other issues.
[2023-05-30] MEDS ORDERED: methylPREDNISolone 4 MG TAB PO SCH (07:00)
[2023-05-31] MEDS ORDERED: methylPREDNISolone 4 MG TAB PO SCH (07:00)
[2023-06-01] MEDS ORDERED: methylPREDNISolone 4 MG TAB PO SCH (07:00)
== END 2023-05-29 14:31 | disposition home or self-care (01) | DRG 948 ==
LOC: ED 14:57 → 3W 20:39 → SUATTDRO 20:39 → 3W 23:03